=== PATIENT | female | born 1985 | race Caucasian/White ===

== ENCOUNTER 2020-01-27 14:31 | Outpatient (CLI) | payer OTHER, SELFPAY ==
--- NOTE | ~2020-01-27 | US_ITS ---
EXAMINATION: US right upper quadrant EXAM DATE: 01/27/2020 15:14 INDICATION: Increased liver function. Cholecystectomy. TECHNIQUE: Multiple grayscale and Doppler images of the abdomen right upper quadrant were obtained (b y a technologist who performed the scan) and subsequently reviewed. There is no prior study for trenton roca. FINDINGS: The pancreatic head and body are normal in appearance. The pancreatic tail is not visualized. The l iver has normal echogenicity and contour. There are no focal liver lesions identified. There is no evidence of intrahepatic biliary duct dilation. Portal venous flow was seen in the hepatopedal, nor mal direction and has normal Doppler waveform. No right-sided hydronephrosis. Common bile duct measures 6 mm, which is normal. The gallbladder fossa is unremarkable. IMPRESSION: 1. Unremarkable abdominal ultrasound exam. Reviewed, dictated and finalized at location G.
[2020-01-27 15:44] LABS: Prothrombin Time 12.6 Seconds (11.1-14.7)
[2020-01-27 15:45] LABS: Partial Thromboplastin Time 26.3 SECONDS (22.3-36.8)
[2020-01-27 15:46] LABS: Alanine Aminotransferase 12 U/L (4-35); Albumin Level 4.4 g/dL (3.5-5.1); Alkaline Phosphatase 74 U/L (38-126); Aspartate Amino Transferase 20 U/L (14-36)
[2020-01-27 16:42] LABS: Hepatitis B Surface Antigen Negative (Negative)
[2020-01-27 16:47] LABS: HAV RESULT Negative (Negative); Hepatitis B Core IgM Result Negative (Negative)
[2020-01-27 16:59] LABS: Hepatitis C Virus Antibody Negative (Negative)
[2020-01-30 12:01] LABS: Actin Antibody (IgG) <20 U (<20)
[2020-01-30 12:55] LABS: Mitochondrial (M2) Ab (IgG) <=20.0 U (<=20.0)
[2020-01-31 11:31] LABS: Anti Nuclear Antibody Titer 1:40 (Negative)
== END 2020-01-27 14:32 | disposition home or self-care (01) ==
DX: R94.5 Abnormal results of liver function studies (principal)
CPT/HCPCS: 36415; 76705; 80074; 80076; 83516; 83520; 85610; 85730; 86038; 86039

== ENCOUNTER 2022-01-31 13:43 | Outpatient (CLI) | payer OTHER, SELFPAY ==
[2022-01-31 14:32] LABS: Rheumatoid Factor < 8.6 IU/ML (<12)
[2022-01-31 14:42] LABS: CRP < 0.5 mg/dL (<1.0)
[2022-01-31 14:44] LABS: Erythrocyte Sedimentation Rate 11 mm/hr (0-20)
== END 2022-01-31 13:44 | disposition home or self-care (01) ==
LOC: ANHLAB 13:45
PROVIDERS: Visit Provider Podiatrist Foot & Ankle Surgery
DX: M79.671 Pain in right foot (principal)
CPT/HCPCS: 36415; 83036; 85652; 86038; 86039; 86140; 86430

== ENCOUNTER 2022-06-25 09:31 | Outpatient (CLI) | payer OTHER, SELFPAY ==
--- NOTE | 2022-06-25 11:00 | NEURO_ITS ---
Impression: # Complains of numbness of lower extremities. # Normal nerve conduction study. # Normal needle/EMG exam. # Clinical correlation recommended. Nerve Conduction Studies Anti Sensory Summary Table Stim Site NR Peak (ms) P-T Amp (?V) Site1 Site2 Delta-P (ms) Dist (cm) Hi (m/s) Left Sup Fibular Anti Sensory (Ant Lat Mall) 14 cm 2.9 12.4 14 cm Ant Lat Mall 2.9 16.0 55 Right Sup Fibular Anti Sensory (Ant Lat Mall) 14 cm 3.1 19.6 14 cm Ant Lat Mall 3.1 16.0 52 Left Sural Anti Sensory (Lat Mall) Calf 3.5 14.8 Calf Lat Mall 3.5 16.0 46 Right Sural Anti Sensory (Lat Mall) Calf 3.6 19.2 Calf Lat Mall 3.6 16.0 44 Motor Summary Table Stim Site NR Onset (ms) O-P Amp (mV) Site1 Site2 Delta-0 (ms) Dist (cm) Hi (m/s) Left Peroneal Motor (Vastus Med) Ankle 4.0 1.2 Popit Ankle 7.6 36.0 47 Popit 11.6 1.3 Right Peroneal Motor (Vastus Med) Ankle 4.2 2.6 Popit Ankle 7.7 33.0 43 Popit 11.9 2.2 Left Tibial Motor (Abd Elaine Brev) Ankle 4.5 7.1 Knee Ankle 9.7 40.0 41 Knee 14.2 2.5 Right Tibial Motor (Abd Elaine Brev) Ankle 4.1 5.0 Knee Ankle 9.3 37.0 40 Knee 13.4 2.7 F Wave Studies NR F-Lat (ms) L-R F-Lat (ms) Left Peroneal (Mrkrs) (EDB) 51.11 0.00 Right Peroneal (Mrkrs) (EDB) 51.11 0.00 Left Tibial (Mrkrs) (Abd Hallucis) 50.94 0.16 Right Tibial (Mrkrs) (Abd Hallucis) 50.78 0.16 EMG Side Muscle Nerve Root Ins Act Fibs Amp Dur Recrt Comment Right AntTibialis Dp Br Fibular L4-5 Nml Nml Nml Nml Nml Right Gastroc Tibial S1-2 Nml Nml Nml Nml Nml Right Fibularis Long Sup Br Fibular L5-S1 Nml Nml Nml Nml Nml Right Flex Dig Long Tibial L5-S2 Nml Nml Nml Nml Nml Right Ext Dig Brev Dp Br Fibular L5, S1 Nml Nml Nml Nml Nml Left AntTibialis Dp Br Fibular L4-5 Nml Nml Nml Nml Nml Left Gastroc Tibial S1-2 Nml Nml Nml Nml Nml Left Fibularis Long Sup Br Fibular L5-S1 Nml Nml Nml Nml Nml Left Flex Dig Long Tibial L5-S2 Nml Nml Nml Nml Nml Left Ext Dig Brev Dp Br Fibular L5, S1 Nml Nml Nml Nml Nml MTDD
== END 2022-06-25 09:32 | disposition home or self-care (01) ==
PROVIDERS: PCP Physician Assistant; Visit Provider Psychiatry & Neurology Neurology
DX: R20.0 Anesthesia of skin (principal)
CPT/HCPCS: 95886; 95910

== ENCOUNTER 2022-07-11 14:13 | Emergency (ER) | payer OTHER, SELFPAY ==
--- NOTE | 2022-07-11 14:20 | ED.URI ---
HPI - URI/Sore Throat General Chief Complaint: Ear Stated Complaint: Right Ear Irritation, Face Swelling Time Seen by Provider: 07/11/22 14:20 Source: patient, RN notes reviewed and old records reviewed Mode of arrival: ambulatory Limitations: no limitations History of Present Illness HPI Narrative: 37-year-old female presents to the [facility] with complaints of right ear irritation and face swelling. Sinus issues x 1 week. Right ear pain with HX Related Data Home Medications Medication Instructions Recorded Confirmed epinephrine 0.3 mg/0.3 mL 0.3 mg IM ONCE PRN 04/17/22 injection, auto-injector amoxicillin 875 mg-potassium tablet 07/11/22 clavulanate 125 mg tablet duloxetine 60 mg capsule,delayed mg PO 07/11/22 release famotidine 20 mg tablet mg 07/11/22 Allergies Allergy/AdvReac Type Severity Reaction Status Date / Time bee venom protein (honey bee) Allergy Severe Anaphylaxis Verified 07/11/22 14:31 diclofenac [From Pennsaid] Allergy Severe Itching Verified 07/11/22 14:31 fentanyl Allergy Severe Other Verified 07/11/22 14:31 aripiprazole Allergy Unknown HIVES Verified 07/11/22 14:31 doxycycline Allergy Unknown Other Verified 07/11/22 14:31 sumatriptan Allergy Unknown HIVES Verified 07/11/22 14:31 codeine AdvReac Unknown STOMACH Verified 07/11/22 14:31 ISSUE'S Contrast Media Allergy Unknown HIVES Uncoded 07/11/22 14:31 TRAMADOL HCL Allergy Unknown HIVES Uncoded 07/11/22 14:31 Review of Systems Review of Systems: All systems reviewed & are unremarkable except as noted in HPI and below Constitutional: Constitutional: Reports no additional constitutional complaints, Denies chills and Denies fever(s) Eyes: Eyes: Reports no additional eye complaints ENT: Reports as per HPI and Reports otalgia Cardiovascular: Cardiovascular: Reports no additional cardiovascular complaints Respiratory: Respiratory: Reports no additional respiratory complaints Gastrointestinal: Gastrointestinal: Reports no additional gastrointestinal complaints Musculoskeletal: Musculoskeletal: Reports no additional musculoskeletal complaints Integumentary/Breasts: Skin/Breast: Reports system reviewed and no additional complaints, except as docu Neurologic: Reports system reviewed and no additional complaints, except as documented Psychiatric: Psychiatric: Reports no additional psychiatric complaints Allergic/Immunologic: Allergic/Immunologic: Reports no additional allergic/immunologic complaints PMFSH Past Medical History Medical History Acute sinusitis Asthma Bladder irritability Crohn disease Dilation of esophagus Encounter for prophylactic removal of fallopian tube Gastritis GERD (gastroesophageal reflux disease) Hyperlipidemia Insomnia Irritable bowel disease Neuropathy Nondiabetic gastroparesis Pain in both feet Pain in both hands Pancreatitis Peptic ulcer Plantar fasciitis of left foot Pneumonia Polyneuropathy Post traumatic stress disorder Sinusitis Stricture of esophagus Vitamin D deficiency Surgical History Surgical History H/O LEEP H/O tubal ligation History of biopsy Stomach History of cholecystectomy History of hysterectomy Family History Family History Mother Depression Sibling Depression Alcohol abuse Blood coagulation disorder Disorder of thyroid gland Hypertension Mother Hypertension Hypercholesteremia Heart disease Disorder of thyroid gland Blood coagulation disorder Asthma Alcohol abuse Son Autoimmune disease Vitiligo Alopecia Sibling Alcohol abuse ADHD (attention deficit hyperactivity disorder) Depression Social History Social History Smoking status: Never smoker Comments At the time of my signature, I reviewed and agree with
[2022-07-11 14:25] VITALS: BP 105/68; PULSE 81; RESP 16; TEMP 36.2; O2SAT 100
--- NOTE | 2022-07-11 14:38 | PC.NURSE ---
another rn was in with pt and no further assessment done by this rn after.
== END 2022-07-11 15:20 | disposition home or self-care (01) ==
PROVIDERS: Emergency Provider Nurse Practitioner; PCP Physician Assistant
DX: H69.91 Unspecified Eustachian tube disorder, right ear (principal); J32.9 Chronic sinusitis, unspecified; J45.909 Unspecified asthma, uncomplicated; K50.90 Crohn's disease, unspecified, without complications; K21.9 Gastro-esophageal reflux disease without esophagitis; E78.5 Hyperlipidemia, unspecified
CPT/HCPCS: 99213; G0463

== ENCOUNTER 2022-10-05 08:27 | Emergency (ER) | payer OTHER, SELFPAY ==
--- NOTE | ~2022-10-05 | CT_ITS ---
EXAMINATION: CT abdomen pelvis wo con DATE: 10/05/2022 14:22 INDICATION: Right abdominal pain. TECHNIQUE: Computed tomography (CT) of the abdomen and pelvis was performed without intravenous contr ast. Automated exposure control and iterative reconstruction technique were employed. The dose-length product was 555.21 mGy-cm. COMPARISON: CT abdomen and pelvis 03/09/2015 FINDINGS: The visualized portions of the lung bases demonstrate mild atelectasis. No pleural effusion . The heart size is normal. No pericardial effusion. The liver is normal. There are changes of cholec ystectomy. Calcifications in the spleen are consistent with old granulomatous disease. The pancreas, adrenal glands, and kidneys are normal. There is no urolithiasis. There are no dilated loops of bowel . The appendix is normal. There are no pathologically enlarged lymph nodes. There is no free intraper itoneal fluid. There is mild thoracic spondylosis. IMPRESSION: 1. No etiology for the patient's symptoms. Reviewed, dictated and finalized at location A. WELL ENGINEER
[2022-10-05 08:55] VITALS: BP 126/75; PULSE 62; RESP 16; TEMP 36.6; O2SAT 100
[2022-10-05 09:18] LABS: Add Urine Microscopic? YES; Appearance Urine Clear (Clear); Bilirubin Urine Negative (Negative); Blood Urine Trace-Intact (Negative); Color Urine Straw (Yellow); Glucose Urine UA Negative (Negative); Ketones Urine Negative (Negative); Leukocyte Esterase Ur Negative LEU/UL (Negative); Nitrate Urine Negative (Negative); Protein Urine Negative (Negative); Urobilinogen Urine 0.2 mg/dL (<2.0); pH Urine 7.5 (5.0-9.0)
[2022-10-05 09:28] LABS: Bacteria Urine Trace /hpf; Mucus Urine Rare /lpf; Squamous Epithelial Cell Urine Moderate /hpf (Few); WBC Urine 0-3 /hpf
[2022-10-05] MEDS: SODIUM CHLORIDE 0.9% IV 1,000 ML 999 ML IV CONT (12:29)
[2022-10-05 12:43] LABS: Basophils Percent Auto 0.4 % (0.2-1.2); Eosinophils Absolute Auto 0.1 K/mm3 (0-0.3); Eosinophils Percent Auto 1.8 % (0-4.4); Hematocrit 40.2 % (37.0-47.0); Hemoglobin 13.2 g/dL (12.0-15.0); Immature Granulocyte Absolute 0.02 K/mm3 (0.00-0.031); Immature Granulocyte Percent A 0.3 % (0-0.5); Lymphocytes Absolute Auto 2.76 K/mm3 (0.9-3.2); Mean Corpuscular HGB Conc 32.8 g/dl (32-36); Mean Corpuscular Hemoglobin 29.1 pg (26-34); Mean Corpuscular Volume 88.5 fl (80-100); Mean Platelet Volume 10.3 fl (7.4-10.4); Monocytes Absolute Auto 0.4 K/mm3 (0.1-0.6); Monocytes Percent Auto 5.1 % (2.6-8.5); Neutrophils Absolute Auto 4.3 K/mm3 (1.3-6.7); Neutrophils Percent Auto 56.4 % (45.5-73.1); Platelet Count Result 252 k/mm3 (150-375); Red Blood Count 4.54 M/mm3 (4.2-5.4); Red Cell Distribution Width 12.3 % (11.5-14.5); White Blood Count 7.7 K/mm3 (4.5-10.0)
--- NOTE | 2022-10-05 13:30 | ED.GENADULT ---
HPI - General Adult General Chief complaint: Vaginal Bleeding Stated complaint: Vaginal Bleed Time Seen by Provider: 10/05/22 11:28 History of Present Illness HPI narrative: 37-year-old female presents emergency room for right lower quadrant abdominal pain with vaginal spotting for 3 days. Patient states that she noted a spot of blood 3 days ago, had intercourse the following day and has noticed an increase in her spotting. Patient has had a partial hysterectomy due to multiple abnormal Pap smears. She has also had a uterine ablation and LEEP procedure. Related Data Home Medications Medication Instructions Recorded Confirmed amoxicillin 875 mg-potassium tablet 07/11/22 clavulanate 125 mg tablet Allergies Allergy/AdvReac Type Severity Reaction Status Date / Time bee venom protein (honey bee) Allergy Severe Anaphylaxis Verified 09/02/22 14:29 diclofenac [From Pennsaid] Allergy Severe Itching Verified 09/02/22 14:29 fentanyl Allergy Severe Other Verified 09/02/22 14:29 aripiprazole Allergy Unknown HIVES Verified 09/02/22 14:29 doxycycline Allergy Unknown Other Verified 09/02/22 14:29 sumatriptan Allergy Unknown HIVES Verified 09/02/22 14:29 codeine AdvReac Unknown STOMACH Verified 07/11/22 14:31 ISSUE'S Contrast Media Allergy Unknown HIVES Uncoded 09/02/22 14:29 TRAMADOL HCL Allergy Unknown HIVES Uncoded 09/02/22 14:29 PMFSH Past Medical History Medical History Acute sinusitis Asthma Bladder irritability Crohn disease Dilation of esophagus Encounter for prophylactic removal of fallopian tube Gastritis GERD (gastroesophageal reflux disease) Hyperlipidemia Insomnia Irritable bowel disease Neuropathy Nondiabetic gastroparesis Pain in both feet Pain in both hands Pancreatitis Peptic ulcer Plantar fasciitis of left foot Pneumonia Polyneuropathy Post traumatic stress disorder Sinusitis Stricture of esophagus Vitamin D deficiency Surgical History Surgical History H/O LEEP H/O tubal ligation History of biopsy Stomach History of cholecystectomy History of hysterectomy Family History Family History Mother Depression Sibling Depression Alcohol abuse Blood coagulation disorder Disorder of thyroid gland Hypertension Mother Hypertension Hypercholesteremia Heart disease Disorder of thyroid gland Blood coagulation disorder Asthma Alcohol abuse Son Autoimmune disease Vitiligo Alopecia Sibling Alcohol abuse ADHD (attention deficit hyperactivity disorder) Depression Social History Social History Smoking status: Never smoker Alcohol intake: never Substance use: never Lack of Transportation: No Lack of Food: Sometimes True Current Housing: I Have Housing Concerned About Future Housing: No Difficulty Paying Gas/Electric Bills: No Difficulty Paying for Meds: No Currently Unemployed: No Education: High School Diploma/GED Difficulty w/ Childcare or Family Care: No Exam Narrative: GENERAL: Well-appearing, well-nourished, no physical limitations, and in no acute distress. HEAD: Normocephalic, atraumatic. EYES: Conjunctivae normal, PERRLA and EOMI. CHEST: Clear to auscultation. No respiratory distress. No wheezes rales or rhonchi. HEART: Regular rate and rhythm. No murmur heard. Normal peripheral pulses. ABDOMEN: Soft, right lower quadrant tenderness, nondistended, normal active bowel sounds. : Normal external female exam. Vaginal vault demonstrates pink rugae with no evidence of trauma. No blood noted BACK: No CVA tenderness; No cervical/thoracic/lumbar tenderness, step-offs, bony abnormality; FROM EXTREMITIES: Normal range of motion. No edema. No clubbing or cyanosis SKIN: Warm, dry, no rash. No noted wounds NEURO: No focal defi
[2022-10-05 13:40] LABS: Anion Gap 6 mmol/L (8-16); Blood Urea Nitrogen 9 mg/dL (7-17); Calcium 8.8 mg/dL (8.4-10.2); Carbon Dioxide 28 mmol/L (22-30); Chloride 104 mmol/L (98-107); Estimated CRCL calculation 104 ml/min; Estimated Glomerular Filt Rate > 60; Glucose 89 mg/dL (65-110); Potassium 3.9 mmol/L (3.4-5.0); Sodium 138 mmol/L (137-145)
== END 2022-10-05 15:29 | disposition home or self-care (01) ==
PROVIDERS: Emergency Medicine; Emergency Provider Nurse Practitioner Family; PCP Physician Assistant
DX: N93.9 Abnormal uterine and vaginal bleeding, unspecified (principal); J45.909 Unspecified asthma, uncomplicated; E78.5 Hyperlipidemia, unspecified; K50.90 Crohn's disease, unspecified, without complications; K21.9 Gastro-esophageal reflux disease without esophagitis; K31.84 Gastroparesis; G62.9 Polyneuropathy, unspecified; Z87.01 Personal history of pneumonia (recurrent); Z90.711 Acquired absence of uterus with remaining cervical stump
CPT/HCPCS: 36415; 74176; 80048; 81001; 85025; 96360; 96361; 99284; J7030

== ENCOUNTER 2023-01-04 13:13 | Outpatient (CLI) | payer OTHER, SELFPAY ==
--- NOTE | ~2023-01-04 | MR_ITS ---
EXAMINATION: MR lumbar spine wo con DATE: 01/04/2023 13:55 INDICATION: RLE pain, concern for radiculopathy . TECHNIQUE: Magnetic resonance imaging (MRI) of the lumbar spine was performed without intravenous con trast. Sequences included sagittal T2-weighted FSE, sagittal T2-weighted FS FSE, sagittal T1-weighted FSE, and axial T2-weighted FSE. COMPARISON: None FINDINGS: The last fully formed and hydrated disc is designated L5-S1. The marrow signal is benign an d homogenous. Conus terminates at L1. The discs are well hydrated. The following disc levels are spec ifically discussed: T11-T12: The disc does not extend beyond the endplate margin. There is no facet joint osteoarthritis. There is no neural foraminal stenosis. There is no central canal stenosis. T12-L1: The disc does not extend beyond the endplate margin. There is no facet joint osteoarthritis. There is no neural foraminal stenosis. There is no central canal stenosis. L1-L2: The disc does not extend beyond the endplate margin. There is mild facet joint osteoarthritis. There is no neural foraminal stenosis. There is no central canal stenosis. L2-L3: The disc does not extend beyond the endplate margin. There is mild facet joint osteoarthritis. There is no neural foraminal stenosis. There is no central canal stenosis. L3-L4: Mild diffuse bulge. There is mild facet joint osteoarthritis. There is no neural foraminal tori nosis. There is no central canal stenosis. L4-L5: Mild diffuse bulge. 2 mm bilateral foraminal protrusions. There is no facet joint osteoarthrit is. There is no neural foraminal stenosis. There is no central canal stenosis. L5-S1: Mild diffuse bulge. Tiny, focal disc rent centrally. There is mild facet joint osteoarthritis. There is no neural foraminal stenosis. There is no central canal stenosis. IMPRESSION: 1. 2 mm bilateral foraminal protrusions at L4-5, without significant neural foraminal narrowing. 2. Mild multilevel lumbar degenerative disc disease. 3. Mild multilevel facet arthropathy. Reviewed, dictated and finalized at location K. IMPRESSION: 1. 2 mm bilateral foraminal protrusions at L4-5, without significant neural for aminal narrowing. 2. Mild multilevel lumbar degenerative disc disease. 3. Mild multilevel facet arthropathy.
== END 2023-01-04 13:14 | disposition home or self-care (01) ==
LOC: ANHIMG 13:23
PROVIDERS: PCP Internal Medicine Gastroenterology; Visit Provider Student in an Organized Health Care Education/Training Program
DX: M79.2 Neuralgia and neuritis, unspecified (principal); M51.36 Other intervertebral disc degeneration, lumbar region; M47.817 Spondylosis without myelopathy or radiculopathy, lumbosacral region; M51.26 Other intervertebral disc displacement, lumbar region
CPT/HCPCS: 72148

== ENCOUNTER 2023-07-03 09:36 | Outpatient (CLI) | payer OTHER, SELFPAY ==
--- NOTE | ~2023-07-03 | XR_ITS ---
EXAMINATION: XR chest 2V DATE: 07/03/2023 09:56 INDICATION: Abnormal imaging of spleen. TECHNIQUE: Frontal and lateral views of the chest were obtained. COMPARISON: Chest 2 views 10/19/2010, CT abdomen and pelvis 10/05/2022 FINDINGS: There is no pneumonia, pleural effusion, or pneumothorax. Surgical clips in the right upper quadrant are likely from cholecystectomy. Calcifications in the spleen are consistent with old granu lomatous disease. IMPRESSION: 1. No acute cardiopulmonary disease. Reviewed, dictated and finalized at location E.
[2023-07-07 12:22] LABS: NIL 0.06; Quantiferon TB Plus, 1T Positive; TB1-NIL 0.38; TB2-NIL 0.38
== END 2023-07-03 09:37 | disposition home or self-care (01) ==
PROVIDERS: PCP Internal Medicine Gastroenterology
DX: R93.5 Abnormal findings on diagnostic imaging of other abdominal regions, including retroperitoneum (principal)
CPT/HCPCS: 36415; 71046; 86480

== ENCOUNTER 2023-10-27 14:53 | Outpatient (CLI) | payer OTHER, SELFPAY ==
--- NOTE | ~2023-10-27 | CT_ITS ---
EXAMINATION:CT diagnostic chest wo con DATE: 10/27/2023 15:19 INDICATION: Abnormal abdominal imaging. TECHNIQUE: Computed tomography (CT) of the chest was performed without intravenous contrast. Automate d exposure control and iterative reconstruction technique were employed. The dose-length product (DLP ) was 124.97 mGy-cm. COMPARISON: CT abdomen and pelvis 10/05/2022 FINDINGS: The lungs demonstrate minimal atelectasis. No pleural effusion. The heart size is normal. N o pericardial effusion. Calcifications in the spleen are consistent with old granulomatous disease. T here are changes of cholecystectomy. There is mild thoracic spondylosis. IMPRESSION: 1. No significant abnormality. Reviewed, dictated and finalized at location E. S COMMISSIONS ANALYST
== END 2023-10-27 14:54 | disposition home or self-care (01) ==
PROVIDERS: PCP Internal Medicine Gastroenterology
DX: R76.11 Nonspecific reaction to tuberculin skin test without active tuberculosis (principal)
CPT/HCPCS: 71250

== ENCOUNTER 2023-11-16 13:21 | Emergency (ER) | payer OTHER, SELFPAY ==
[2023-11-16 13:57] VITALS: BP 120/70; PULSE 78; RESP 16; TEMP 36.9; O2SAT 100
--- NOTE | 2023-11-16 14:01 | ED.SKABFB ---
HPI - Skin/Abscess/Foreign Bdy General Chief complaint: Skin/Abscess/Foreign Body Stated complaint: Rash Time Seen by Provider: 11/16/23 14:31 Source: patient and RN notes reviewed Mode of arrival: ambulatory Limitations: no limitations History of Present Illness HPI narrative: 38-year-old female presents concern for rash to her left arm. She reports the rash has been there about 2 weeks, it showed up 2 days after she got a tattoo. Reports it is itchy and not painful. She reports she got another tattoo on the lower arm later and the rash spread there. She reports she has put [id number] cream on without relief. She denies rashes in any other area of her body MD complaint: rash Related Data Allergies Allergy/AdvReac Type Severity Reaction Status Date / Time bee venom protein (honey bee) Allergy Severe Anaphylaxis Verified 11/16/23 14:05 diclofenac [From Pennsaid] Allergy Severe Itching Verified 11/16/23 14:05 fentanyl Allergy Severe Other Verified 11/16/23 14:05 aripiprazole Allergy Unknown HIVES Verified 11/16/23 14:05 doxycycline Allergy Unknown Other Verified 11/16/23 14:05 sumatriptan Allergy Unknown HIVES Verified 11/16/23 14:05 codeine AdvReac Unknown STOMACH Verified 11/16/23 14:05 ISSUE'S Contrast Media Allergy Unknown HIVES Uncoded 09/02/22 14:29 TRAMADOL HCL Allergy Unknown HIVES Uncoded 09/02/22 14:29 Review of Systems Review of Systems: CONSTITUTIONAL: Denies malaise, chills, sweats, or fever. EYES: Denies redness, or discharge. ENT: Denies rhinorrhea, congestion, swollen lips, swollen tongue CARDIOVASCULAR: Denies chest pain, palpitations, or edema. RESPIRATORY: Denies cough or dyspnea. GASTROINTESTINAL: Denies abdominal pain, nausea, vomiting SKIN: Reports itchy rash to the left arm MUSCULOSKELETAL: Denies joint pain or myalgia. NEUROLOGIC: Denies headache. All systems reviewed & are unremarkable except as noted in HPI and below PMFSH Past Medical History Medical History Acute sinusitis Asthma Bladder irritability Crohn disease Dilation of esophagus Encounter for prophylactic removal of fallopian tube Gastritis GERD (gastroesophageal reflux disease) Hyperlipidemia Insomnia Irritable bowel disease Neuropathy Nondiabetic gastroparesis Pain in both feet Pain in both hands Pancreatitis Peptic ulcer Plantar fasciitis of left foot Pneumonia Polyneuropathy Post traumatic stress disorder Sinusitis Stricture of esophagus Vitamin D deficiency Surgical History Surgical History H/O LEEP H/O tubal ligation History of biopsy Stomach History of cholecystectomy History of hysterectomy Family History Family History Mother Depression Sibling Depression Alcohol abuse Blood coagulation disorder Disorder of thyroid gland Hypertension Mother Hypertension Hypercholesteremia Heart disease Disorder of thyroid gland Blood coagulation disorder Asthma Alcohol abuse Son Autoimmune disease Vitiligo Alopecia Sibling Alcohol abuse ADHD (attention deficit hyperactivity disorder) Depression Social History Social History (Updated 12/24/22 @ 13:36 by Valencia Ye MA) Smoking status: Never smoker Alcohol intake: never Substance use: never Lack of Transportation: No Lack of Food: Never True Current Housing: I Have Housing Concerned About Future Housing: No Difficulty Paying Gas/Electric Bills: No Difficulty Paying for Meds: No Currently Unemployed: No Education: High School Diploma/GED Difficulty w/ Childcare or Family Care: No Comments At time of signature, agree with nursing past medical, surgical, social and family history. There is no relevant family history pertinent to the presenting complaint Exam Narrative: GENERAL: Well-appearing, well-nourished, and in no acute di
== END 2023-11-16 14:44 | disposition home or self-care (01) ==
PROVIDERS: Emergency Provider Nurse Practitioner; PCP Internal Medicine Gastroenterology
DX: L25.9 Unspecified contact dermatitis, unspecified cause (principal); J45.909 Unspecified asthma, uncomplicated; K50.90 Crohn's disease, unspecified, without complications; K21.9 Gastro-esophageal reflux disease without esophagitis; E78.5 Hyperlipidemia, unspecified; G62.9 Polyneuropathy, unspecified
CPT/HCPCS: 99213; G0463

== ENCOUNTER 2024-04-08 15:28 | Outpatient (CLI) | payer OTHER, SELFPAY ==
[2024-04-08 16:08] LABS: Basophils Percent Auto 0.4 % (0.2-1.2); Eosinophils Absolute Auto 0.3 K/mm3 (0-0.3); Eosinophils Percent Auto 4.8 % (0-4.4); Hemoglobin 14.3 g/dL (12.0-15.0); Immature Granulocyte Absolute 0.01 K/mm3 (0.00-0.031); Immature Granulocyte Percent A 0.1 % (0-0.5); Lymphocytes Absolute Auto 2.92 K/mm3 (0.9-3.2); Lymphocytes Percent Auto 42.1 % (18.3-44.2); Mean Corpuscular Hemoglobin 29.8 pg (26-34); Mean Corpuscular Volume 87.5 fl (80-100); Mean Platelet Volume 10.5 fl (7.4-10.4); Monocytes Absolute Auto 0.3 K/mm3 (0.1-0.6); Monocytes Percent Auto 4.9 % (2.6-8.5); Neutrophils Absolute Auto 3.3 K/mm3 (1.3-6.7); Neutrophils Percent Auto 47.7 % (45.5-73.1); Platelet Count Result 246 k/mm3 (150-375); Red Cell Distribution Width 12.1 % (11.5-14.5); White Blood Count 6.9 K/mm3 (4.5-10.0)
[2024-04-08 16:21] LABS: Alanine Aminotransferase 13 U/L (6-35); Albumin Level 4.8 g/dL (3.5-5.1); Alkaline Phosphatase 66 U/L (38-126); Anion Gap 7 mmol/L (4-12); Aspartate Amino Transferase 20 U/L (14-36); Bilirubin,Total 0.9 mg/dL (0.2-1.3); Blood Urea Nitrogen 13 mg/dL (7-17); Calcium 9.4 mg/dL (8.4-10.2); Carbon Dioxide 28 mmol/L (22-30); Chloride 104 mmol/L (98-107); Estimated Glomerular Filt Rate > 60; Glucose 90 mg/dL (65-110); Potassium 3.9 mmol/L (3.4-5.0); Sodium 139 mmol/L (137-145)
[2024-04-08 16:49] LABS: Hemoglobin A1C 5.2 % (<5.7)
[2024-04-11 10:48] LABS: Homocysteine 8.2 umol/L (<10.4)
[2024-04-11 12:33] LABS: SS-A <1.0 NEG AI (<1.0 NEG); SS-B <1.0 NEG AI (<1.0 NEG)
[2024-04-12 17:14] LABS: Immunofixation, Serum Normal pattern.
[2024-04-13 20:39] LABS: Vitamin B6 8.2 ng/mL (2.1-21.7)
[2024-04-14 10:59] LABS: Vitamin B1 11 nmol/L (8-30)
[2024-04-19 18:18] LABS: Arsenic,Urine Results Below (<36); Cadmium,Random Urine Results Below (<1.3); Cobalt,Random Urine <0.5 mcg/L (<2.9); Creatinine,Random Urine 82 mg/dL (20-275); Lead,Urine Results Below (<10); Mercury, Random Urine Results Below (<5); Thallium, Urine Results Below (<0.5)
== END 2024-04-08 15:29 | disposition home or self-care (01) ==
LOC: ANHLAB 15:29
PROVIDERS: PCP Internal Medicine Gastroenterology; Visit Provider Student in an Organized Health Care Education/Training Program
DX: G62.9 Polyneuropathy, unspecified (principal)
CPT/HCPCS: 36415; 80053; 82607; 82746; 83036; 83090; 84207; 84425; 84443; 85025; 86038; 86039; 86235; 86334; 86335

== ENCOUNTER 2024-08-31 13:02 | Emergency (ER) | payer OTHER, SELFPAY ==
--- NOTE | 2024-08-31 13:09 | ED.SKABFB ---
HPI - Skin/Abscess/Foreign Bdy General Chief complaint: Skin/Abscess/Foreign Body Stated complaint: Skin Issues Time Seen by Provider: 08/31/24 13:15 Source: patient Mode of arrival: ambulatory Limitations: no limitations History of Present Illness HPI narrative: Keri is a 39-year-old female patient presenting to the clinic today with complaints of possible skin infection. She reports she had attached to on her right lateral thigh completed on Thursday. Noticed some redness and swelling with warmth to touch and tenderness. She saw her composer teaching artist today and they stated that she should come in and have an evaluation to check for an infection. She denies any fever or chills currently. Related Data Allergies Allergy/AdvReac Type Severity Reaction Status Date / Time bee venom protein (honey bee) Allergy Severe Anaphylaxis Verified 08/31/24 13:06 diclofenac [From Pennsaid] Allergy Severe Itching Verified 08/31/24 13:06 fentanyl Allergy Severe Other Verified 08/31/24 13:06 aripiprazole Allergy Unknown HIVES Verified 08/31/24 13:06 doxycycline Allergy Unknown Other Verified 08/31/24 13:06 sumatriptan Allergy Unknown HIVES Verified 08/31/24 13:06 codeine AdvReac Unknown STOMACH Verified 08/31/24 13:06 ISSUE'S Contrast Media Allergy Unknown HIVES Uncoded 08/31/24 13:06 TRAMADOL HCL Allergy Unknown HIVES Uncoded 08/31/24 13:06 Review of Systems Review of Systems: Pertinent positives per HPI. Patient denies any fever, chills, headache, visual changes, dizziness, cough, runny nose, sore throat, shortness of breath, chest pain, palpitations, nausea, vomiting, diarrhea, constipation, abdominal pain, or any urinary issues. [facility] Past Medical History Medical History Acute sinusitis Asthma Bladder irritability Crohn disease Dilation of esophagus Encounter for prophylactic removal of fallopian tube Gastritis GERD (gastroesophageal reflux disease) Hyperlipidemia Insomnia Irritable bowel disease Neuropathy Nondiabetic gastroparesis Pain in both feet Pain in both hands Pancreatitis Peptic ulcer Plantar fasciitis of left foot Pneumonia Polyneuropathy Post traumatic stress disorder Sinusitis Stricture of esophagus Vitamin D deficiency Surgical History Surgical History H/O LEEP H/O tubal ligation History of biopsy Stomach History of cholecystectomy History of hysterectomy Family History Family History Mother Depression Sibling Depression Alcohol abuse Blood coagulation disorder Disorder of thyroid gland Hypertension Mother Hypertension Hypercholesteremia Heart disease Disorder of thyroid gland Blood coagulation disorder Asthma Alcohol abuse Son Autoimmune disease Vitiligo Alopecia Sibling Alcohol abuse ADHD (attention deficit hyperactivity disorder) Depression Social History Social History Smoking status: Never smoker Alcohol intake: never Substance use: never Lack of Transportation: No Lack of Food: Never True Current Housing: I Have Housing Concerned About Future Housing: No Difficulty Paying Gas/Electric Bills: No Difficulty Paying for Meds: No Currently Unemployed: No Education: High School Diploma/GED Difficulty w/ Childcare or Family Care: No Comments At the time of my signature, I reviewed and agree with the nursing past medical, surgical, social, and family history. There is no relevant family history pertinent to the patient complaint. Exam Narrative: General: Well-developed, well nourished, in no apparent distress Head: Normocephalic, atraumatic. Cardio: Regular rate and rhythm, s1 and s2 normal, no murmur appreciated. Resp: Clear to auscultation bilaterally, no rhonchi, rales, wheezing or rubs. Integumentary: Laie, warm, and dry, infected tattoo to the right thigh with redness, erythema, and localized swelling/cellulitis. Course Course Emergency Course: Portions of this record may have been created with voice recognition software. Level of Care: Express Care Visit Vital Signs Vital signs: Vital signs reviewed MDM - Skin/Abscess/Foreign Bdy MDM Narrative Medical decision making narrative: At the time of visit patient is resting comfortably on the exam table. Patient appears to be nontoxic. Plan: I suspect patient has cellulitis from a tattoo infection. Prescription for clindamycin was sent to the pharmacy. Discussed taking a probiotic or eating yogurt 2 hours before 2 hours after taking the antibiotic to prevent C diff. Supportive measures were discussed with the patient and they voiced understanding discharge instructions and agrees to treatment plan. Return precautions reviewed Differential Diagnosis Differential diagnosis: Likely abscess of skin or subcutaneous tissue, viral exanthem, dermatophytosis, herpes zoster, allergic reaction to drug, cellulitis, eczema, insect bites, impetigo and contact dermatitis Discharge Plan Discharge Clinical Impression: Cellulitis of right thigh Patient Disposition: Home, Self-Care Condition: Stable Instructions: Antibiotic Form, Cellulitis (ED) Additional Instructions: Keep wound clean and dry Wash daily with soap and water and pat dry Take clindamycin as prescribed May take a probiotic daily 2 hours before or 2 hours after taking the medication or eat yogurt-do this for up to 1 month May take Tylenol/Motrin as needed for pain May apply cool compress to the affected area to help alleviate pain and swelling Follow-up with your primary care doctor on Thursday for wound check If symptoms worsen while on the antibiotic recommend going to the emergency room for further evaluation-increase in redness, swelling, pain, purulent discharge, streaking, or fever not controlled by Tylenol or Motrin. Prescriptions: New clindamycin HCl 300 mg capsule 300 mg PO Q8H 10 Days Qty: 30 0RF Follow-up/Referrals: Mitzy,Ann Roy MD [Primary Care Provider] - Time of Disposition: 13:17 Quality NIHSS Nursing Documentation ED NIHSS nursing documentation: reviewed/agree
[2024-08-31 13:10] VITALS: BP 110/79; PULSE 68; RESP 18; TEMP 36.8; O2SAT 99
== END 2024-08-31 13:25 | disposition home or self-care (01) ==
PROVIDERS: Emergency Provider Nurse Practitioner Family; PCP Internal Medicine Gastroenterology
DX: L03.115 Cellulitis of right lower limb (principal); J45.909 Unspecified asthma, uncomplicated; K50.90 Crohn's disease, unspecified, without complications; K21.9 Gastro-esophageal reflux disease without esophagitis; E78.5 Hyperlipidemia, unspecified
CPT/HCPCS: 99213; G0463

== ENCOUNTER 2024-11-12 08:46 | Emergency (ER) | payer OTHER, SELFPAY ==
[2024-11-12 08:57] VITALS: BP 103/75; PULSE 67; RESP 16; TEMP 35.8; O2SAT 98
--- NOTE | 2024-11-12 08:59 | ED.URI ---
HPI - URI/Sore Throat General Chief Complaint: Upper Respiratory Infection Stated Complaint: cough, lungs & back hurt Time Seen by Provider: 11/12/24 08:59 Source: patient, RN notes reviewed and old records reviewed Mode of arrival: ambulatory Limitations: no limitations History of Present Illness HPI Narrative: Patient presents with complaints of minimally productive parking burning cough that has been present for 5 days. She denies any fever, chills, sweats. She denies any shortness of breath. Reports occasional wheezing. She has tried [id number] medications with poor relief. She is not in any distress. She denies any injury or trauma. Voices no other concerns or complaints at this time. Related Data Home Medications ?Medication ?Instructions ?Recorded ?Confirmed ?Last Taken ?Type cyanocobalamin (vitamin B-12) 100 mcg IM MONTHLY 11/12/24 11/12/24 Unknown History 1,000 mcg/mL injection solution dicyclomine 20 mg tablet 20 mg PO TID PRN abdominal pain 11/12/24 11/12/24 Unknown History Allergies Allergy/AdvReac Type Severity Reaction Status Date / Time bee venom protein (honey bee) Allergy Severe Anaphylaxis Verified 11/12/24 08:54 diclofenac (From Pennsaid) Allergy Severe Itching Verified 11/12/24 08:54 fentanyl Allergy Severe Other Verified 11/12/24 08:54 aripiprazole Allergy Unknown HIVES Verified 11/12/24 08:54 doxycycline Allergy Unknown Other Verified 11/12/24 08:54 sumatriptan Allergy Unknown HIVES Verified 11/12/24 08:54 codeine AdvReac Unknown STOMACH Verified 11/12/24 08:54 ISSUE'S Contrast Media Allergy Unknown HIVES Uncoded 11/12/24 08:54 TRAMADOL HCL Allergy Unknown HIVES Uncoded 11/12/24 08:54 Review of Systems Review of Systems: All systems reviewed & are unremarkable except as noted in HPI and below Constitutional: Constitutional: Reports no additional constitutional complaints ENT: Reports system reviewed and no additional complaints, except as documented Cardiovascular: Cardiovascular: Reports no additional cardiovascular complaints Respiratory: Respiratory: Reports no additional respiratory complaints, Reports chest congestion, Reports cough and Reports wheezing Gastrointestinal: Gastrointestinal: Reports no additional gastrointestinal complaints PMFSH Past Medical History Medical History Acute sinusitis Asthma Bladder irritability Crohn disease Dilation of esophagus Encounter for prophylactic removal of fallopian tube Gastritis GERD (gastroesophageal reflux disease) Hyperlipidemia Insomnia Irritable bowel disease Neuropathy Nondiabetic gastroparesis Pain in both feet Pain in both hands Pancreatitis Peptic ulcer Plantar fasciitis of left foot Pneumonia Polyneuropathy Post traumatic stress disorder Sinusitis Stricture of esophagus Vitamin D deficiency Surgical History Surgical History History of biopsy Stomach H/O tubal ligation H/O LEEP History of hysterectomy History of cholecystectomy Family History Family History Mother Depression Sibling Depression Alcohol abuse Blood coagulation disorder Disorder of thyroid gland Hypertension Mother Hypertension Hypercholesteremia Heart disease Disorder of thyroid gland Blood coagulation disorder Asthma Alcohol abuse Son Autoimmune disease Vitiligo Alopecia Sibling Alcohol abuse ADHD (attention deficit hyperactivity disorder) Depression Social History Social History Smoking status: Never smoker Alcohol intake: never Substance use: never Lack of Transportation: No Lack of Food: Never True Current Housing: I Have Housing Concerned About Future Housing: No Difficulty Paying Gas/Electric Bills: No Difficulty Paying for Meds: No Currently Unemployed: No Education: High School Diploma/GED Difficulty w/ Childcare or Family Care: No Comments At the time of my signature, I reviewed and agree with the nursing past medical, surgical, social, and family history. There is no relevant family history pertinent to the patient complaint. Exam Const: General: cooperative, no acute distress, alert and awake Orientation/consciousness: oriented to person, oriented to place and oriented to time HENMT: Head: normal to inspection Mouth: Yes moist mucous membranes Resp: Effort & Inspection: normal respiratory effort and able to speak in complete sentences Auscultation: clear to auscultation bilaterally, no crackles, no rales, no rhonchi and no wheezes Other: Barking cough noted Cardio: Palpation: normal PMI Rate: regular rate Rhythm: regular rhythm Heart sounds: S1 normal heart sound present and S2 normal heart sound present Neuro: General: oriented to person, oriented to place and oriented to time Cranial nerves: Yes CN's II-XII intact bilaterally Psych: Appearance: grossly normal Thought process: Normal thought process present Insight: Good insight present (Psych) Judgement: Good judgement present (Psych) Course Course Level of Care: Express Care Visit Vital Signs Vital signs: Vital Signs Temperature 96.4 F L 11/12/24 08:57 Pulse Rate 67 11/12/24 08:57 Respiratory Rate 16 11/12/24 08:57 Blood Pressure 103/75 11/12/24 08:57 Pulse Oximetry 98 11/12/24 08:57 Oxygen Delivery Room Air 11/12/24 08:57 Temperature 96.4 F L 11/12/24 08:57 Pulse Rate 67 11/12/24 08:57 Respiratory Rate 16 11/12/24 08:57 Blood Pressure 103/75 11/12/24 08:57 Pulse Oximetry 98 11/12/24 08:57 Oxygen Delivery Room Air 11/12/24 08:57 Reviewed MDM - URI/Sore Throat MDM Narrative Medical decision making narrative: History and exam consistent with bronchitis. Start steroid burst, cough suppressant, bronchodilator. Patient no distress, stable for discharge home. Discharge instructions reviewed with patient, as well as provided in writing per nursing staff. The instructions also include specific and strict return/GO TO THE ER as well as f/u information. All questions have been answered, and the patient deny any further questions with discharge and discharge plan. Some parts of this dictation were generated by voice recognition software and may contain typographical and/or grammatical inaccuracies. Differential Diagnosis Differential diagnosis: Likely upper respiratory infection and viral infection Medical Records Attestation: I reviewed the patient's medical records. Discharge Plan Discharge Clinical Impression: Bronchitis Patient Disposition: Home, Self-Care Condition: Stable Instructions: Antibiotic Form, Acute Bronchitis (ED) Additional Instructions: Take medications as prescribed. Follow with primary care provider. Emergency department for any new or worse symptoms Patient Language: Cook Islander Prescriptions: New prednisone 50 mg tablet 50 mg PO DAILY Qty: 5 0RF albuterol sulfate [Ventolin HFA] 90 mcg/actuation HFA aerosol inhaler 2 puff inhalation QID PRN (Reason: shortness of breath or wheezing) Qty: 8.5 0RF benzonatate 200 mg capsule 200 mg PO TID PRN (Reason: cough) Qty: 30 0RF No Action cyanocobalamin (vitamin B-12) 1,000 mcg/mL solution 100 mcg IM MONTHLY dicyclomine 20 mg tablet 20 mg PO TID PRN (Reason: abdominal pain) Follow-up/Referrals: Williams,Ann Roy MD [Primary Care Provider] - 2 Weeks Time of Disposition: 09:16
== END 2024-11-12 09:20 | disposition home or self-care (01) ==
PROVIDERS: Emergency Provider Nurse Practitioner Family; PCP Internal Medicine Gastroenterology
DX: J40 Bronchitis, not specified as acute or chronic (principal); J45.909 Unspecified asthma, uncomplicated; K50.90 Crohn's disease, unspecified, without complications; K21.9 Gastro-esophageal reflux disease without esophagitis; E78.5 Hyperlipidemia, unspecified; G62.9 Polyneuropathy, unspecified; K31.84 Gastroparesis
CPT/HCPCS: 99213; G0463

== ENCOUNTER 2025-03-21 11:31 | Emergency (ER) | payer OTHER, SELFPAY ==
[2025-03-21 11:37] VITALS: BP 104/75; PULSE 76; RESP 16; TEMP 36.6; O2SAT 99
[2025-03-21 12:00] LABS: EDSTREPNEGPOS1 Negative (Negative)
--- NOTE | 2025-03-21 12:06 | ED_ITS ---
HPI - URI/Sore Throat General Chief Complaint: Ear Stated Complaint: ear pain/sore throat Time Seen by Provider: 03/21/25 12:00 Source: patient and RN notes reviewed Mode of arrival: ambulatory Limitations: no limitations History of Present Illness HPI Narrative: 39-year-old female presents Express Care complaining of upper respiratory symptoms for approximately 5 days. Patient reports cough, congestion, mucopur ulent nasal discharge, bilateral ear pain. Does states symptoms are getting progressively worse over the last couple days. Patient denies any fevers, body aches, chills, nausea, vomiting, diarrhea, chest pain, shortness of breath. Patient is not taking [id number] help with symptoms. Related Data Home Medications ?Medication ?Instructions ?Recorded ?Confirmed ?Last Taken ?Type cyanocobalamin (vitamin B-12) 100 mcg IM MONTHLY 11/12/24 03/09/25 Unknown History 1,000 mcg/mL injection solution dicyclomine 20 mg tablet 20 mg PO TID PRN abdominal pain 11/12/24 03/09/25 Unknown History budesonide-formoterol HFA 160 inhalation 03/21/25 Unknown History mcg-4.5 mcg/actuation aerosol inhaler (Symbicort) epinephrine 0.3 mg/0.3 mL 03/21/25 Unknown History injection, auto-injector Allergies Allergy/AdvReac Type Severity Reaction Status Date / Time bee venom protein (honey bee) Allergy Severe Anaphylaxis Verified 03/09/25 11:33 diclofenac (From Pennsaid) Allergy Severe Itching Verified 03/09/25 11:33 fentanyl Allergy Severe Other Verified 03/09/25 11:33 aripiprazole Allergy Unknown HIVES Verified 03/09/25 11:33 doxycycline Allergy Unknown Other Verified 03/09/25 11:33 sumatriptan Allergy Unknown HIVES Verified 03/09/25 11:33 codeine AdvReac Unknown STOMACH Verified 03/09/25 11:33 ISSUE'S Contrast Media Allergy Unknown HIVES Uncoded 03/09/25 11:33 TRAMADOL HCL Allergy Unknown HIVES Uncoded 03/09/25 11:33 Review of Systems Review of Systems: CONSTITUTIONAL: Denies fever, chills, body aches, or sweats. EYES: Denies visual changes, redness, or discharge. ENT: Negative for rhinorrhea. Positive for congestion, sore throat, or otalgia. CARDIOVASCULAR: Denies chest pain, palpitations, or edema. RESPIRATORY: Positive for cough. Negative for dyspnea or wheezing. GASTROINTESTINAL: Denies abdominal pain, nausea, vomiting, or diarrhea. GENITOURINARY: Denies dysuria or hematuria. SKIN: Denies rash or itching. MUSCULOSKELETAL: Denies back pain, joint pain, or myalgia. NEUROLOGIC: Denies headache, numbness, or weakness. PSYCHIATRIC: Denies anxiety or depression. All other systems reviewed are negative, except as documented in HPI. [facility], [facility] Past Medical History Medical History Dilation of esophagus Encounter for prophylactic removal of fallopian tube Pancreatitis Bladder irritability Sinusitis Vitamin D deficiency GERD (gastroesophageal reflux disease) Pneumonia Asthma Insomnia Peptic ulcer Irritable bowel disease Post traumatic stress disorder Crohn disease Hyperlipidemia Nondiabetic gastroparesis Stricture of esophagus Gastritis Pain in both hands Pain in both feet Plantar fasciitis of left foot Neuropathy Acute sinusitis Polyneuropathy Surgical History Surgical History History of biopsy Stomach H/O tubal ligation H/O LEEP History of hysterectomy History of cholecystectomy Family History Family History Mother Depression Sibling Depression Alcohol abuse Blood coagulation disorder Disorder of thyroid gland Hypertension Mother Hypertension Hypercholesteremia Heart disease Disorder of thyroid gland Blood coagulation disorder Asthma Alcohol abuse Son Autoimmune disease Vitiligo Alopecia Sibling Alcohol abuse ADHD (attention deficit hyperactivity disorder) Depression Social History Social History Smoking status: Never smoker Alcohol intake: never Substance use: never Do You Feel Safe in your Home?: Yes Lack of Transportation: No Lack of Food: Never True Current Housing: I Have Housing Concerned About Future Housing: No Difficulty Paying Gas/Electric Bills: No Difficulty Paying for Meds: YES Currently Unemployed: No Education: High School Diploma/GED Difficulty w/ Childcare or Family Care: No Comments At the time of my signature, I reviewed and agree with the nursing past medical, surgical, social, and family history. There is no relevant family history pertinent to the patient complaint. Exam Narrative: GENERAL: This is a well-nourished, well-developed adult, in no apparent distress. They are non ill-appearing, nontoxic appearing. HEAD: normocephalic, atraumatic. EYES: Sclera clear/white. Vision is grossly intact. Conjunctiva normal bilaterally. Extraocular movements intact. EARS: External ears normal, auditory canals clear and without drainage, TMs without erythema or perforation, bilateral effusions behind TMs present. Hearing grossly intact. NOSE: External nose normal with no obvious nasal discharge, nasal turbinates erythematous with exudate present, no rhinorrhea. Frontal sinuses tenderness to palpation. THROAT: Mucous membranes moist, posterior pharynx erythema without swelling without exudate. Uvula is midline. Postnasal drip present. NECK: Neck supple, non-tender without lymphadenopathy, masses or thyromegaly. CARDIOVASCULAR: Regular rate and rhythm without murmurs, gallops, or rubs. RESPIRATORY: Clear to auscultation. Breath sounds equal bilaterally. No wheezes, rales, or rhonchi. Respiratory rate normal, respiratory effort nonlabored, no respiratory distress SKIN: warm, Dry, intact with no suspicious lesions or rash, good texture and turgor. NEURO: awake, alert, and oriented to person, place and time. There were no obvious focal neurologic abnormalities. EXTREMITIES: No joint tenderness, effusion, or edema noted. BACK: Nontender without deformity. Course Course Emergency Course: Portions of this record may have been created with voice recognition software Level of Care: Express Care Visit Vital Signs Vital signs: Vital Signs Temperature 97.9 F 03/21/25 11:37 Pulse Rate 76 03/21/25 11:37 Respiratory Rate 16 03/21/25 11:37 Blood Pressure 104/75 03/21/25 11:37 Pulse Oximetry 99 03/21/25 11:37 Oxygen Delivery Room Air 03/21/25 11:37 Temperature 97.9 F 03/21/25 11:37 Pulse Rate 76 03/21/25 11:37 Respiratory Rate 16 03/21/25 11:37 Blood Pressure 104/75 03/21/25 11:37 Pulse Oximetry 99 03/21/25 11:37 Oxygen Delivery Room Air 03/21/25 11:37 MDM - URI/Sore Throat MDM Narrative Medical decision making narrative: Rapid strep negative. Throat culture pending. Given patient's worsening symptoms is likely she has developed a bacterial sinusitis. Treat with Augmentin. Discussed physical exam findings. Advised supportive measures and signs/symptoms to go to the ER. Pt is appropriate for outpt treatment and f/u. Differential Diagnosis Differential diagnosis: Likely upper respiratory infection, sinusitis, viral infection and pharyngitis Lab Data Attestation: I reviewed the patient's lab results. Labs: Lab Results 03/21/25 Range/Units 11:40 POC Grp A Strep Screen Negative (Negative) Discharge Plan Discharge Clinical Impression: Sinusitis Qualifiers: Sinusitis location: unspecified location Chronicity: acute Recurrence: non- recurrent Qualified Code(s): J01.90 - Acute sinusitis, unspecified Patient Disposition: Home Condition: Stable Instructions: Antibiotic Form, Sinusitis (ED) Additional Instructions: Take the antibiotics as directed and complete the course even if you start to feel better. You may use a Neti pot saline rinse 3 times a day with lukewarm distilled water Continue to take Tylenol or Motrin for pain. Use a humidifier or vaporizer at night. Drink plenty of water. 8-10 glasses per day. Use flonase 2 times per day for 5 days then as needed Take mucinex 2 times per day and be sure to take with 8oz of water. Follow up with Primary provider in 3-5 days Please go to the ER if he develops any difficulty breathing, worsening symptoms, or any other concerns Patient Language: Danish Prescriptions: New amoxicillin-pot clavulanate 875-125 mg tablet 1 tablet PO Q12H 7 Days Qty: 14 0RF No Action cyanocobalamin (vitamin B-12) 1,000 mcg/mL solution 100 mcg IM MONTHLY dicyclomine 20 mg tablet 20 mg PO TID PRN (Reason: abdominal pain) albuterol sulfate [Ventolin HFA] 90 mcg/actuation HFA aerosol inhaler 2 puff inhalation QID PRN (Reason: shortness of breath or wheezing) Qty: 8.5 0RF epinephrine 0.3 mg/0.3 mL auto-injector budesonide-formoterol [Symbicort] 160-4.5 mcg/actuation HFA aerosol inhaler INHALATION Follow-up/Referrals: PHYSICIAN,PERFECT BIND MACHINE OPERATOR [Primary Care Provider] - Time of Disposition: 12:09
== END 2025-03-21 12:15 | disposition home or self-care (01) ==
DX: J01.90 Acute sinusitis, unspecified (principal); K21.9 Gastro-esophageal reflux disease without esophagitis; K50.90 Crohn's disease, unspecified, without complications; E78.5 Hyperlipidemia, unspecified; K31.84 Gastroparesis; G62.9 Polyneuropathy, unspecified
CPT/HCPCS: 87081; 87880; 99213; G0463

== ENCOUNTER 2025-03-31 11:00 | Emergency (ER) | payer OTHER, SELFPAY ==
--- NOTE | 2025-03-31 11:10 | ED_ITS ---
HPI - URI/Sore Throat General Chief Complaint: Upper Respiratory Infection Stated Complaint: cough Time Seen by Provider: 03/31/25 11:20 Source: patient Mode of arrival: ambulatory Limitations: no limitations History of Present Illness HPI Narrative: Keri is a 40-year-old female patient presenting to the clinic today with complaints of sinus congestion, cough, frontal sinus headache, and nasal drainage. She reports her symptoms have been going on for over 2 weeks. States that she was seen here a week and half ago and prescribed antibiotics for a sinus infection. She has taken all the antibiotics but does not feels though her symptoms have improved. She denies any fevers, chills, body aches. Denies any chest pain or shortness of breath. Is blowing out clear nasal drainage in coughing up clear phlegm. Feels as though drainage is coming out of her eyes. MD elicited complaint: sore throat and nasal congestion Related Data Home Medications ?Medication ?Instructions ?Recorded ?Confirmed ?Last Taken ?Type cyanocobalamin (vitamin B-12) 100 mcg IM MONTHLY 11/12/24 03/09/25 Unknown History 1,000 mcg/mL injection solution dicyclomine 20 mg tablet 20 mg PO TID PRN abdominal pain 11/12/24 03/09/25 Unknown History epinephrine 0.3 mg/0.3 mL 03/21/25 Unknown History injection, auto-injector Allergies Allergy/AdvReac Type Severity Reaction Status Date / Time bee venom protein (honey bee) Allergy Severe Anaphylaxis Verified 03/31/25 11:07 diclofenac (From [employer]) Allergy Severe Itching Verified 03/31/25 11:07 fentanyl Allergy Severe Other Verified 03/31/25 11:07 aripiprazole Allergy Unknown HIVES Verified 03/31/25 11:07 doxycycline Allergy Unknown Other Verified 03/31/25 11:07 sumatriptan Allergy Unknown HIVES Verified 03/31/25 11:07 codeine AdvReac Unknown STOMACH Verified 03/31/25 11:07 ISSUE'S Contrast Media Allergy Unknown HIVES Uncoded 03/31/25 11:07 TRAMADOL HCL Allergy Unknown HIVES Uncoded 03/31/25 11:07 Review of Systems Review of Systems: Pertinent positives per HPI. Patient denies any fever, chills, rash, headache, visual changes, dizziness, cough, shortness of breath, chest pain, palpitations, nausea, vomiting, diarrhea, constipation, abdominal pain, or any urinary issues. [facility] Past Medical History Medical History Dilation of esophagus Encounter for prophylactic removal of fallopian tube Pancreatitis Bladder irritability Sinusitis Vitamin D deficiency GERD (gastroesophageal reflux disease) Pneumonia Asthma Insomnia Peptic ulcer Irritable bowel disease Post traumatic stress disorder Crohn disease Hyperlipidemia Nondiabetic gastroparesis Stricture of esophagus Gastritis Pain in both hands Pain in both feet Plantar fasciitis of left foot Neuropathy Acute sinusitis Polyneuropathy Surgical History Surgical History History of biopsy Stomach H/O tubal ligation H/O LEEP History of hysterectomy History of cholecystectomy Family History Family History Mother Depression Sibling Depression Alcohol abuse Blood coagulation disorder Disorder of thyroid gland Hypertension Mother Hypertension Hypercholesteremia Heart disease Disorder of thyroid gland Blood coagulation disorder Asthma Alcohol abuse Son Autoimmune disease Vitiligo Alopecia Sibling Alcohol abuse ADHD (attention deficit hyperactivity disorder) Depression Social History Social History Smoking status: Never smoker Alcohol intake: never Substance use: never Do You Feel Safe in your Home?: Yes Lack of Transportation: No Lack of Food: Never True Current Housing: I Have Housing Concerned About Future Housing: No Difficulty Paying Gas/Electric Bills: No Difficulty Paying for Meds: YES Currently Unemployed: No Education: High School Diploma/GED Difficulty w/ Childcare or Family Care: No Comments At the time of my signature, I reviewed and agree with the nursing past medical, surgical, social, and family history. There is no relevant family history pertinent to the patient complaint. Exam Narrative: General: Well-developed, well nourished, in no apparent distress Head: Normocephalic, atraumatic Eyes: Pupils equally round and reactive to light bilaterally, EOM intact, sclera and conjunctive clear, no discharge, lids normal Ears: TMs intact and clear, ear canals clear, no drainage, grossly hearing normal. Nose: Nares patent, clear nasal discharge, monitor inflammation, frontal sinus tenderness. Mouth: Oral pharynx without lesions or masses, good dentition, MMM. Postnasal drip Neck: Supple, trachea midline, no enlargement of anterior or posterior cervical nodes, no thyroid masses or goiter palpable. Cardio: Regular rate and rhythm, s1 and s2 normal, no murmur appreciated. Resp: Clear to auscultation bilaterally, no rhonchi, rales, wheezing or rubs Course Course Emergency Course: Portions of this record may have been created with voice recognition software. Level of Care: Express Care Visit Vital Signs Vital signs: Vital signs reviewed MDM - URI/Sore Throat MDM Narrative Medical decision making narrative: At the time of visit patient is resting comfortably on the exam table. Patient appears to be nontoxic. Plan: I suspect patient has lingering sinusitis. Nasal drainage is clear so I suspect the infection has improved however patient does have congestion and is reporting a sinus headache. Will place the patient on prednisone to help dry up congestion. Supportive measures were discussed with the patient and they voiced understanding discharge instructions and agrees to treatment plan. Return precautions reviewed Differential Diagnosis Differential diagnosis: Likely upper respiratory infection, otitis media, sinusitis, viral infection, bronchitis, influenza, pharyngitis and other (COVID) Discharge Plan Discharge Clinical Impression: Sinusitis Qualifiers: Sinusitis location: frontal Chronicity: acute Recurrence: non-recurrent Qualified Code(s): J01.10 - Acute frontal sinusitis, unspecified Patient Disposition: Home Condition: Stable Instructions: Antibiotic Form, Rhinosinusitis (ED) Additional Instructions: Take prescription medications only as prescribed-prednisone Increase fluids and stay well hydrated Tylenol/motrin for pain/fever Flonase and OTC antihistamines as directed Vicks vapor rub to open sinuses Sinus rinses for congestion Cepacol spray, cough drops, throat lozenges, warm tea with honey/lemon, gargle salt water to soothe throat BRAT diet for diarrhea Clear liquids x 24 hours then advance as tolerated for nausea/vomiting Go to the ED if you develop a worsening in your condition- high fever not controlled by Tylenol or Motrin, dehydration, weakness, lethargy, shortness of breath, or chest pain. Follow up with your PCP in 3-5 days if symptoms persist. Patient Language: Mexican Prescriptions: New prednisone 20 mg tablet 40 mg PO DAILY 5 Days Qty: 10 0RF No Action cyanocobalamin (vitamin B-12) 1,000 mcg/mL solution 100 mcg IM MONTHLY dicyclomine 20 mg tablet 20 mg PO TID PRN (Reason: abdominal pain) epinephrine 0.3 mg/0.3 mL auto-injector Follow-up/Referrals: UNKNOWN,DOCTOR [Primary Care Provider] - Time of Disposition: 11:27 Quality NIHSS Nursing Documentation ED NIHSS nursing documentation: reviewed/agree
[2025-03-31 11:15] VITALS: BP 104/69; PULSE 96; RESP 16; TEMP 36.9; O2SAT 100
== END 2025-03-31 11:36 | disposition home or self-care (01) ==
PROVIDERS: Emergency Provider Nurse Practitioner Family
DX: J01.10 Acute frontal sinusitis, unspecified (principal); E78.5 Hyperlipidemia, unspecified
CPT/HCPCS: 99213; G0463

== ENCOUNTER 2025-04-16 13:21 | Outpatient (CLI) | payer OTHER, SELFPAY ==
--- NOTE | ~2025-04-16 | MR_ITS ---
MRI of the right shoulder Technique: Axial proton-density fat-sat images, coronal proton density fat-sat and T2 fat-sat images, and sagittal T1-weighted and T2 fat-sat images were acquired. Clinical History: Other shoulder lesion Findings: AC joint is essentially unremarkable. Coracoclavicular, coracoacromial, and coracohumeral l igaments appear intact. Supraspinatus and infraspinatus tendons are intact, without partial or full-thickness tear. Subscapul milagros tendon is intact. Tendon of long head of the biceps is intact. No labral tear evident. Inferior glenohumeral ligament is intact. No degenerative change or effusion of the glenohumeral join t. There is mild fluid distention of the subacromial/subdeltoid bursa. No muscle atrophy or edema. Impression: Mild subacromial/subdeltoid bursitis. Reviewed, dictated and finalized at [facility]. Impression: Mild subacromial/subdeltoid bursitis.
--- OUTSIDE RECORDS SUMMARY | 2025-04-16 13:25 | XMS_ITS | Data Portability ---
Author Organization [facility] - [facility] Walk-in Appointment Scheduler, Main Office Address [address] [place] [address] Care Team Providers Care Ordering Machine Operator Name Role Phone YARA HAQUE Primary Care Provider [phone] YARA HAQUE Referring Provider Assessment No assessment recorded. Plan of Treatment Reminders Order Date Submit Date Provider Last Modified By Organization Details Last Modified Time Details Appointments None recorded. Lab None recorded. Referral None recorded. Procedures None recorded. Surgeries None recorded. Imaging None recorded. Medication Orders colestipol 1 gram tablet 2023 024 [facility] [address] [place], [address], 16:17:39 dicyclomine 20 mg tablet 2023 024 [facility] [address] [place], [address], 4 15:11:51 Cholestyram ine Light 4 gram oral powder 2023 024 [facility] [address] [place], [address], 15:11:50 Patient TargetsNo targets recorded. Patient Instructions Encounter Date Encounter Id Patient Instructions Last Modified By Organization Details Last Modified Time 05/11/2024 [id number] PT WITH SX OF POST CANDY SYNDROME . TRY QUESTRAN . PT WITH ABD CRAMPING /IBS-D . TRY DICYCLOMINE . PT C/O LOW VIT D . ADD CALTRATE TO HER REGIMEN . PT C/O LEG CRAMPING . TRY MAGNESIUM GLYCINATE . F/U IN 4 WEEKS . [email or web address] Not available 05/11/2024 15:11:30 09/07/2024 [id number] PT WITH POST CANDY SYNDROME . TRY COLESTIPOL1 GM , 2 TABS DAILY . TRY DICYCLOMINE 10 MG DAILY AND THEN NEEDED . CALL WITH RESULTS ON THURSDAY . IF OK F/U IN 3 MTHS . Not available 09/07/2024 16:17:13 Reason for Referral None Reported. Results Created Date Observation Date Name Description Value Unit Range Abnormal Flag Note LastModifiedBy Organization Detail LastModifiedTime 01/15/20 22 01/14/2022 MRI, ankle , w/o contr ast No observ ation record ed. 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 COMPAR AGUSTIN: Right foot radiog raphs dated 2021. TECHNI QUE: Multip lanar multis equenc e noncon trast MR images of the right ankle were perfor med. FINDIN GS: Bones: No eviden ce of acute fractu re throug hout the right ankle. No eviden ce of talar dome osteoc hondra l lesion . Ligame nts: The anteri or and software build engineer ior talofi bular ligame nts, anteri or and Page 1 of 3 [facility] t Name: TAL JONES A Access ion #: [id number] Sex: F : 1984 6 Exam Date: 2:02 PM Exam Name: MRI ANKLE RT WO Admitt ing Diagno sis(es ): software build engineer ior tibiof ibular ligame nts, calcan eofibu lar ligame nt, and deltoi d ligame nt are intact . Tendon s: No eviden ce of tendon tear or tenosy noviti s involv ing the tendon s of the right ankle. There is a multic entric access ory navicu lar bone. Small planta r calcan eal bone spur and Achill es insert ion enthes ophyte are presen t. There is trace fluid anteri or to the distal Achill es tendon . The Achill es tendon and planta r fascia demons trate normal morpho logy and signal otherw ise. Joints : There are small margin al osteop hytes extend ing dorsal ly from the talona vicula r joint. No there are small ankle and subtal ar effusi ons. There is subcut aneous edema of the anteri or aspect of the distal lower leg.. IMPRES MADALYN: 1. No fractu re or bone marrow edema of the right ankle. 2. The major ligame nts of the right ankle are intact . 3. Small planta r calcan eal bone spur and Achill es insert ion enthes ophyte are presen t, with otherw ise normal signal and morpho logy of the Achill es tendon and planta r fascia . 4. Mild pre Achill es bursit is. 5. Mild talona vicula r osteoa rthrit is. Create d and electr onical ly signed by: Jaden triana MD Signed Date: 3:09 PM (CT) Dictat ed by: Jaden triana MD DD: 3:09 PM (CT) Page 2 of 3 [facility] Patinida t Name: TAL JONES A Access ion #: [id number] Sex: F : 1984 6 Exam Date: 2:02 PM Exam Name: MRI ANKLE RT WO Admitt ing Diagno sis(es ): DT: 3:09 PM (CT) Page 3 of 3 [id number] [facility] (Imaging) [address] [place], [address], 12/04/2022 00:06:10 01/16/20 22 01/14/2022 MRI, ankle , w/o contr ast No observ ation record ed. [id number] [facility] [address] [place], [address], 12/04/2022 00:06:10 01/16/20 MRI, ankle , w/o contr ast [facility] [address] [place] [address] Patien t Name: TAL JONES Access ion #: [id number] Sex: F : 1984 6 Locati on: RA2 Attend ing Physic la: SUDHA MOLINA Physic la: SUDHA MOLINA Exam Date: 2:02 PM Exam Name: MRI ANKLE LT W/O Admitt ing Diagno sis(es ): RADIOL OGY REPORT - FINAL EXAM: MRI ANKLE LT W/O HISTOR Y: planta r fascii tis, software build engineer ior tibial tendon itis 36-yea r-old female with left ankle and heel pain, no known injury . COMPAR AGUSTIN: Left foot radiog raphs dated 2021. TECHNI QUE: Multip lanar multis equenc e noncon trast MR images of the left ankle were perfor med. JEANIEIN GS: Bones: No eviden ce of acute fractu re throug hout the left ankle. No eviden ce of talar dome osteoc hondra l lesion . Ligame nts: The anteri or and software build engineer ior talofi bular ligame nts, anteri or and Page 1 of 3 [facility] Name: TAL JONES A Access ion #: [id number] Sex: F : 1984 6 Exam Date: 022 2:02 PM Exam Name: MRI ANKLE LT W/O Admitt ing Diagno sis(es ): software build engineer ior tibiof ibular ligame nts, calcan eofibu lar ligame nt, and deltoi d ligame nt are intact . Tendon s: There is a small amount of fluid around the tibial is software build engineer ior tendon . No other eviden ce of tendon tear or tenosy noviti s involv ing the tendon s of the right ankle. Small planta r calcan eal bone spur and Achill es insert ion enthes ophyte are presen t. The Achill es tendon and planta r fascia demons trate normal morpho logy and signal otherw ise. Joints : There are margin al osteop hytes extend ing dorsal ly from the talona vicula r joint. There are trace effusi ons in the tibiot alar, subtal ar, and midfoo t joints . 7 mm gangli on cyst extend s dorsol ateral ly from the 3rd MTP joint (image 8, series 801). There is subcut aneous edema of the thuan medial aspect of the distal lower leg. IMPRES MADALYN: 1. Mild tibial is software build engineer ior tenosy noviti s. 2. The major ligame nts of the left ankle are intact . 3. Small planta r calcan eal bone spur and Achill es insert ion enthes ophyte are presen t. There is otherw ise normal signal and morpho logy of the Achill es tendon and planta r fascia . No MRI eviden ce of acute planta r fascii tis. 4. Mild talona vicula r osteoa rthrit is. Create d and electr onical ly signed by: Jaden triana MD Signed Date: 022 9:01 AM (CT) Dictat ed by: Jaden triana MD Page 2 of 3 [facility] Name: TAL JONES A Access ion #: [id number] Sex: F : 1984 6 Exam Date: 2:02 PM Exam Name: MRI ANKLE LT W/O Admitt ing Diagno sis(es ): DD: 9:01 AM (CT) DT: 9:01 AM (CT) Page 3 of 3 [id number] [facility] ([facility] [address] [place], [address], 12/04/2022 00:06:10 Result Notes Documentation Provider Name and Address Organization Details Recorded Time Mri, Ankle, W/o Contrast : [facility] [address] [place] [address] Patient Name: KIM JONES Sex: F : 1985 Location: [facility] Attending Physician: SUDHA ROQUE Ordering Physician: SUDHA ROQUE Exam Date: 01/14/2022 2:02 PM Exam Name: MRI ANKLE RT WO Admitting Diagnosis(es): RADIOLOGY REPORT - FINAL EXAM: MRI ANKLE RT WO HISTORY: plantar fasciitis, posterior tibial tendonitis 36-year-old female with right ankle and heel pain. COMPARISON: Right foot radiographs dated 10/14/2021. TECHNIQUE: Multiplanar multisequence noncontrast MR images of the right ankle were performed. FINDINGS: Bones: No evidence of acute fracture throughout the right ankle. No evidence of talar dome osteochondral lesion. Ligaments: The anterior and posterior talofibular ligaments, anterior and Page 1 of 3 [facility] Patient Name: KIM JONES Sex: F : 1985 Exam Date: 01/14/2022 2:02 PM Exam Name: MRI ANKLE RT WO Admitting Diagnosis(es): posterior tibiofibular ligaments, calcaneofibular ligament, and deltoid ligament are intact. Tendons: No evidence of tendon tear or tenosynovitis involving the tendons of the right ankle. There is a multicentric accessory navicular bone. Small plantar calcaneal bone spur and Achilles insertion enthesophyte are present. There is trace fluid anterior to the distal Achilles tendon. The Achilles tendon and plantar fascia demonstrate normal morphology and signal otherwise. Joints: There are small marginal osteophytes extending dorsally from the talonavicular joint. No there are small ankle and subtalar effusions. There is subcutaneous edema of the anterior aspect of the distal lower leg.. IMPRESSION: 1. No fracture or bone marrow edema of the right ankle. 2. The major ligaments of the right ankle are intact. 3. Small plantar calcaneal bone spur and Achilles insertion enthesophyte are present, with otherwise normal signal and morphology of the Achilles tendon and plantar fascia. 4. Mild pre Achilles bursitis. 5. Mild talonavicular osteoarthritis. Created and electronically signed by: Jaden Dolan MD Signed Date: 01/14/2022 3:09 PM (CT) Dictated by: Jaden Dolan MD (CT) Page 2 of 3 [facility] Patient Name: KIM JONES Sex: F : 1985 Exam Date: 01/14/2022 2:02 PM Exam Name: MRI ANKLE RT WO Admitting Diagnosis(es): (CT) Page 3 of 3 Not Available [facility] 12/04/2022 00:06:11 Mri, Ankle, W/o Contrast : [address] [address] Patient Name: KIM JONES Sex: F : 1985 Location: [facility] Attending Physician: SUDHA ROQUE Ordering Physician: SUDHA ROQUE Exam Date: 01/14/2022 2:02 PM Exam Name: MRI ANKLE LT W/O Admitting Diagnosis(es): RADIOLOGY REPORT - FINAL EXAM: MRI ANKLE LT W/O HISTORY: plantar fasciitis, posterior tibial tendonitis 36-year-old female with left ankle and heel pain, no known injury. COMPARISON: Left foot radiographs dated 10/14/2021. TECHNIQUE: Multiplanar multisequence noncontrast MR images of the left ankle were performed. FINDINGS: Bones: No evidence of acute fracture throughout the left ankle. No evidence of talar dome osteochondral lesion. Ligaments: The anterior and posterior talofibular ligaments, anterior and Page 1 of 3 [facility] Patient Name: KIM JONES Sex: F : 1985 Exam Date: 01/14/2022 2:02 PM Exam Name: MRI ANKLE LT W/O Admitting Diagnosis(es): posterior tibiofibular ligaments, calcaneofibular ligament, and deltoid ligament are intact. Tendons: There is a small amount of fluid around the tibialis posterior tendon. No other evidence of tendon tear or tenosynovitis involving the tendons of the right ankle. Small plantar calcaneal bone spur and Achilles insertion enthesophyte are present. The Achilles tendon and plantar fascia demonstrate normal morphology and signal otherwise. Joints: There are marginal osteophytes extending dorsally from the talonavicular joint. There are trace effusions in the tibiotalar, subtalar, and midfoot joints. 7 mm ganglion cyst extends dorsolaterally from the 3rd MTP joint (image 8, series 801). There is subcutaneous edema of the anteromedial aspect of the distal lower leg. IMPRESSION: 1. Mild tibialis posterior tenosynovitis. 2. The major ligaments of the left ankle are intact. 3. Small plantar calcaneal bone spur and Achilles insertion enthesophyte are present. There is otherwise normal signal and morphology of the Achilles tendon and plantar fascia. No MRI evidence of acute plantar fasciitis. 4. Mild talonavicular osteoarthritis. Created and electronically signed by: Jaden Dolan MD Signed Date: 01/15/2022 9:01 AM (CT) Dictated by: Jaden Dolan MD Page 2 of 3 [facility] Patient Name: KIM JONES Sex: F : 1985 Exam Date: 01/14/2022 2:02 PM Exam Name: MRI ANKLE LT W/O Admitting Diagnosis(es): (CT) (CT) Page 3 of 3 Not Available [facility] 12/04/2022 00:06:11 Problems Name Problem SNOMED Code Status Onset Date Resolution Date Notes Provider Name and Address Organization Details Recorded Time Tibialis posterior tendinitis 831004550 Active 2021 Not Available [facility] 3 00:04:39 Foot pain 18868508 Active 2021 Not Available [facility] 3 00:04:39 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 Please review this document and add these problems to the patient's chart manually as needed. Problem Notes None recorded. Procedures Surgical History Date Name Laterality Status Provider Name and Address Organization Details Recorded Time cholecystopexy completed SATISH Lemus [employer] [facility] 03/22/2024 10:02:23 fallopian tube excision completed SATISH Lemus [facility] [employer] 03/22/2024 10:02:43 Hysterectomy completed SATISH Lemus [employer] [facility]in App[facility]ment Scheduler 03/22/2024 10:02:54 loop electrosurgical excision procedure completed SATISH Lemus [employer] [facility]in Appointment Scheduler 03/22/2024 10:03:04 Tubal Ligation completed Amy Muro Manuela [employer] [facility] 03/22/2024 10:03:12 dilation of esophagus completed SATISH Lemus [employer] [facility] 03/22/2024 10:03:25 Biopsy completed SATISH Lemus [place] [facility] [place] [employer] [facility] 03/22/2024 10:03:35 laser uterosacral nerve ablation completed SATISH Lemus [facility] 03/22/2024 10:03:53 Imaging Results None recorded. Procedure Notes None recorded. Medical Equipment None Reported. Allergies Allergen ID Allergen Name Allergen Category Reaction Reaction Severity Criticality Documentation Date Start Date Code Code System Note Provider Name and Address Organization Details Recorded Time 08393 Ultram medicatio n Not available Not available Not available 12/04/2022 10994 6 RxNorm Not Available [facility] 3 00:05:54 60213 codeine medicatio n Not available Not available Not available 12/04/2022 2670 RxNorm Not Available [facility] 3 00:05:54 11225 bee pollen environme nt,medica tion Not available Not available Not available 12/04/2022 56722 7 RxNorm Not Available [facility] 3 00:05:54 49419 Abilify medicatio n Not available Not available Not available 03/22/2024 63390 3 RxNorm SATISH Lemus null, [facility] 4 09:47:11 06735 altretami ne medicatio n Not available Not available Not available 03/22/2024 5296 RxNorm SATISH Lemus null, [facility] [employer] [facility] 4 09:47:24 59346 doxycycli ne Not available Not available Not available Not available 03/22/2024 3640 RxNorm Amy Muro RMA null, [facility] 4 09:47:31 81040 fentanyl medicatio n Not available Not available Not available 03/22/2024 4337 RxNorm Amy Muro RMA null, [facility] 4 09:47:40 11637 Iodinated contrast media (substanc e) medicatio n Not available Not available Not available 03/22/2024 21964 2004 SNOMED SATISH Lemus, [facility] 4 09:47:50 98521 [facility] Not available Not available 03/22/2024 83026 1 RxNorm SATISH Lemus, [facility] 4 09:47:59 Medications Name Sig Start Date Stop Date Status Note LastModified by Organization Details LastModified Time cyclobenzap rine 10 mg tablet 03/22 completed Not Available Not Available Not Available amoxicillin 500 mg capsule TAKE 1 CAPSULE BY MOUTH THREE TIMES DAILY UNTIL GONE 05/11 completed Not Available Not Available Not Available promethazin e-DM 6.25 mg-15 mg/5 mL oral syrup 05/11 completed Not Available Not Available Not Available clindamycin HCl 300 mg capsule 09/07 completed Not Available Not Available Not Available azithromyci n 250 mg tablet 12/19 completed Not Available Not Available Not Available ibuprofen 800 mg tablet TAKE 1 TABLET BY MOUTH EVERY 8 HOURS NEEDED FOR PAIN active Not Available Not Available No t Available fluconazole 150 mg tablet TAKE 1 TABLET BY MOUTH THREE TIMES A WEEK FOR 7 DAYS NEEDED ONLY FOR YEAST VAGINITIS FROM ANTIBIOTI CS. 12/19 completed Not Available Not Available Not Available hydrocodone 5 mg-acetamin ophen 325 mg tablet Take 1 tablet twice a day by oral route as needed for 7 days. 03/22 completed Not Available Not Available Not Available meloxicam 15 mg tablet TAKE 1 TABLET BY MOUTH ONCE DAILY NEEDED FOR 30 DAYS 05/11 completed Not Available Not Available Not Available sucralfate 1 gram tablet TAKE 1 TABLET BY MOUTH 4 TIMES DAILY 05/11 completed Not Available Not Available Not Available metronidazo le 0.75 % (37.5 mg/5 gram) vaginal gel INSERT 1 APPLICATO RFUL VAGINALLY AT BEDTIME FOR 5 DAYS 05/11 completed Not Available Not Available Not Available ondansetron HCl 4 mg tablet 05/11 completed Not Available Not Available Not Available prednisone 20 mg tablet 05/11 completed Not Available Not Available Not Available omeprazole 40 mg capsule,del ayed release TAKE 1 CAPSULE BY MOUTH ONCE DAILY FOR 30 DAYS 05/11 completed Not Available Not Available Not Available triamcinolo ne acetonide 0.1 % topical cream APPLY CREAM TOPICALLY TWICE DAILY FOR 7 DAYS 05/11 completed Not Available Not Available Not Available dicyclomine 20 mg tablet TAKE 1 TABLET BY MOUTH THREE TIMES DAILY NEEDED FOR ABDOMINAL PAIN active Not Available Not Available No t Available pantoprazol e 40 mg tablet,litzy yed release 05/11 completed Not Available Not Available Not Available cyanocobala min (vit B-12) 1,000 mcg/mL injection solution INJECT 1 ML INTRAMUSC ULARLY ONCE A WEEK 05/11 completed Not Available Not Available Not Available Gentle Laxative (bisacodyl) 5 mg tablet,litzy yed release TAKE ALL 4 TABLETS OF DULCOLAX BY MOUTH AT ONE TIME WITH 8 OUNCES OF WATER AT 2 PM THE DAY BEFORE THE COLONOSCO PY 05/11 completed Not Available Not Available Not Available ergocalcife rol (vitamin D2) 1,250 mcg (50,000 unit) capsule TAKE 1 CAPSULE BY MOUTH ONCE A WEEK active Not Available Not Available No t Available lorazepam 1 mg tablet TAKE 1 TABLET BY MOUTH 30 MINUTES BEFORE PROCEDURE 05/11 completed Not Available Not Available Not Available methylpredn isolone 4 mg tablets in a dose pack TAKE BY MOUTH DIRECTED ON INSIDE OF PACKAGE 05/11 completed Not Available Not Available Not Available albuterol sulfate HFA 90 mcg/actuati on aerosol inhaler 03/22 completed Not Available Not Available Not Available colestipol 1 gram tablet Take 2 tablets every day by oral route in the morning for 30 days, for DIARRHEA. 2023 active Not Available Not Available Not Avai lable amoxicillin 875 mg-potassiu m clavulanate 125 mg tablet TAKE 1 TABLET BY MOUTH EVERY 12 HOURS FOR 10 DAYS 12/19 completed Not Available Not Available Not Available duloxetine 30 mg capsule,del ayed release 03/22 completed Not Available Not Available Not Available duloxetine 60 mg capsule,del ayed release 03/22 completed Not Available Not Available Not Available Prevalite 4 gram oral powder MIX 1 SCOOP DIRECTED AND TAKE BY MOUTH EVERY DAY IN THE MORNING active Not Available Not Available No t Available pregabalin 50 mg capsule 05/11 completed Not Available Not Available Not Available cyanocobala min (vitamin B-12) active Not Available Not Available Not Available ClearLax 17 gram/dose oral powder IN A PITCHER, MIX ENTIRE BOTTLE OF MIRALAX IN A 64 OZ. BOTTLE OF YELLOW OR GREEN GATORADE. BEGINNING AT 5PM THE EVENING BEFORE THE COLONOSCO PY, DRINK ONE 8 OZ. GLASS EVERY 15 MINUTES UNTIL COMPLETED . DRINK 4 GLASSES OF WATER AFTER FINISHING MIXTURE. 05/11 completed Not Available Not Available Not Available cyanocobala min (vit B-12) 1,000 mcg/mL injection kit Inject 1 mL every month by subcutane ous route. 05/11 completed Not Available Not Available Not Available ID NOW COVID-19 Test Kit TEST DIRECTED TODAY 03/22 completed Not Available Not Available Not Available COVID-19 test specimen collection TEST DIRECTED TODAY 03/22 completed Not Available Not Available Not Available Vitals Date Recorded Body mass index (BMI) Body height Body weight Provider Name and Address Organization Details Last Updated DateTime 12/19/2021 30.9 kg/m2 157.48 cm 49327.11 g Not Available [facility] 12/04/2022 00:04:30 Date Recorded Body mass index (BMI) Body height Body weight Provider Name and Address Organization Details Last Updated DateTime 01/06/2022 30.9 kg/m2 157.48 cm 60703.11 g Not Available [facility] 12/04/2022 00:04:30 Date Recorded Body mass index (BMI) Body height Body weight Provider Name and Address Organization Details Last Updated DateTime 01/30/2022 30.9 kg/m2 157.48 cm 11721.11 g Not Available [facility] 12/04/2022 00:04:31 Date Recorded Body height Body mass index (BMI) Body weight Heart rate Oxygen saturation Oxygen saturation in Arterial blood by Pulse oximetry Systolic And Diastolic Provider Name and Address Organization Details Last Updated DateTime 157.48 cm 32 kg/m2 00944.6 6 g 78 /min 98 % 98 % 112/78 mm[Hg] SATISH Lemus [place] [facility] [facility] 14:14:53 Date Recorded Body height Body mass index (BMI) Body weight Heart rate Oxygen saturation Oxygen saturation in Arterial blood by Pulse oximetry Systolic And Diastolic Provider Name and Address Organization Details Last Updated DateTime 4 157.48 cm 34.2 kg/m2 95547.7 7 g 80 /min 99 % 99 % 114/80 mm[Hg] SATISH Lemus [place] [facility] 15:53:41 Social History Question Answer Notes LastModified by [facility] Details LastModified Time Tobacco Smoking Status Never Smoker Not Available [facility] 12/04/2022 00:03:11 What Is Your Level Of Caffeine Consumption? None Information not available 03/22/2024 Sex: Unknown Functional Status Question Answer Note LastModified by [facility] Details LastModified Time Do you use any illicit or recreational drugs? No Information not available 03/22/2024 What is your level of alcohol consumption? None Information not available 03/22/2024 Mental Status None recorded. Family History Relationship Description Onset Age of this Age Resolved Age Notes LastModified by Organization Details LastModified Time Mother Hypertensive disorder Not available 2023 09:58:36 Mother Hypercholest erolemia Not available 2023 09:58:47 Mother Heart disease Not available 2023 09:58:56 Mother Disorder of thyroid gland Not available 2023 09:59:08 Mother Diabetes mellitus Not available 2023 09:59:17 Mother Depressive disorder Not available 2023 09:59:30 Mother Blood coagulation disorder Not available 2023 09:59:39 Mother Asthma Not available 0 03/22/2024 09:59:49 Mother Harmful pattern of use of alcohol Not available 2023 09:59:59 Sister Harmful pattern of use of alcohol Not available 2023 10:00:08 Sister Blood coagulation disorder Not available 2023 10:00:17 Sister Depressive disorder Not available 2023 10:00:22 Sister Disorder of thyroid gland Not available 2023 10:00:31 Sister Hypertensive disorder Not available 2023 10:00:37 Brother Harmful pattern of use of alcohol Not available 2023 10:00:45 Brother Attention deficit hyperactivit y disorder Not available 03/22 10:00:56 Brother Depressive disorder Not available 2023 10:01:08 Son Autoimmune disease Not available 2023 10:01:22 Son Vitiligo Not available 03/22/2024 10:01:33 Son Alopecia Not available 03/22/2024 10:01:41 Medical History Condition Response ARTHRITIS Y HEADACHES/MIGRAINES Y GI PROBLEMS Y ANXIETY DISORDER Y ASTHMA Y BOWEL PROBLEMS Y BACK / NECK PROBLEMS Y HEARTBURN / REFLUX Y Gynecological HistoryNo gynecological history recorded. Obstetrics History GPAL:G 0 P 0 0 0 0 Past Encounters Encounter ID Performer Location Encounter Start Date Encounter Closed Date Diagnosis/Indication Diagnosis SNOMED-CT Code Diagnosis ICD10 Code Diagnosis Note [id number] [facility] [place] [address] [place] [address] 10/14/2021 00:00:00 10/14/2021 13:31:56 [id number] [facility] [place] [address] [place] [address] 11/04/2021 00:00:00 11/04/2021 13:00:52 [id number] [facility] [place] [address] [place] [address] 12/19/2021 00:00:00 12/22/2021 19:56:31 [id number] [facility] [place] [address] [place] [address] 01/06/2022 00:00:00 01/06/2022 11:00:34 [id number] [facility] [place] [address] [facility] [address] [place] [address] 01/30/2022 00:00:00 01/30/2022 20:49:17 [id number] Cha Corley MD [facility] General Surgery [address] [facility] [address] [place] [address] 05/11/2024 14:10:02 05/11/2024 14:54:05 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 Abdominal pain 93370212 R10.9 [id number] Cha Corley MD [facility] General Surgery [address] [address] 09/07/2024 15:51:49 09/07/2024 16:11:46 Postcholecystectomy syndrome 38030361 K91.5 Abdominal pain 92014503 R10.9 Health Concerns Section Related Observation LastModified by Organization Detai ls LastModified Time None Recorded Concern Status LastModified by Organization Details LastModified Time None Recorded Advance Directives Directive None Recorded Payers Insurance Date Sequence Insurance Name Policy Number Policy Leung Covered Member ID Leung Member ID Guarantor Name 09/29/2024 1 [facility] - DOS ON OR AFTER 21 (MEDICAID REPLACEMENT - HMO) Kim Keith [id number] Kim Jones 09/04/2024 2 [place] [employer] [facility] [employer] Kim Jones [id number] Kim Jones Notes Date Note Type Note Provider Name and Address Organization Details Recorded Time 05/11/2024 text/html KIM WAS SEEN IN THE OFFICE TODAY FOR EVALUATION . PT C/O RUQ . SHE IS S/P LAP CANDY AND PAIN DID NOT RESOLVE . PT WAS DR GOVEA . S/P ERCP X 2 AND DEVELOPED POST ERCP PANCREATITIS . PT C/O DIARRHEA 3-8 X DAILY .SX ARE ASSOCIATED WITH RECTAL BURNING .SX ARE PRECEEDED BY CRAMPING AND RESOLVE AFTERWARDS . SHE IS S/P EGD IN , COLON IN . A FEW POLYPS WERE FOUND . 10 YR F/U WAS RECOMMENDED . Cha Corley MD [address], [facility] [address], [place], [address], [employer] [facility] 05/11/2024 15:11:48 09/07/2024 text/html KIM WAS SEEN IN THE OFFICE TODAY FOR A F/U. PT HAS POST CANDY SYNDROME . PT WAS RXED CHOLESTYRAMINE , HOWEVER THIS CAUSES SEVERE N/V. DICYCLOMINE LEADS TO CONSTIPATION . Cha Corley MD [address], [facility] [address], [place], [address], [employer] 09/07/2024 16:18:27 OBGyn Episode No OBEpisode recorded.
--- OUTSIDE RECORDS SUMMARY | 2025-04-16 13:25 | XMS_ITS | Clinical Summary ---
Author Organization [facility] Address [facility] [place] [address] Care Team Providers Care Delivery Engineer Name Role Phone Unavailable Primary Care Provider Unavailabl e Social History Tobacco Use Types Packs/Day Years Used Date Smoking Tobacco: Never Assessed Comments Unknown Sex and Gender Information Value Date Recorded Sex Assigned at Not on file Legal Sex Female 8:26 PM CDT Gender Identity Not on file Sexual Orientation Not on file Plan of Treatment Health Maintenance Due Date Last Done Comments Cervical Cancer Screening Pa p Smear (Age 30 to 64) Every 3 Years 1986 Annual Physical 1989 Hepatitis C 2004 DTaP, Tdap and Td Vaccines ( 1 - Tdap) 2005 Hepatitis B Vaccines (1 of 3 - 19+ 3-dose series) 2005 Cervical Cancer Screening Pa p with HPV Testing (Age 30 to 64) Every 5 Years 2016 Cervical Cancer Screening with HPV 2016 COVID-19 Vaccine ( - 2023-2 5 season) 2024 HPV Vaccines Aged Out No longer eligi ble based on patient's age to complete this topic Meningococcal B Vaccine Aged Out No l onger eligible based on patient's age to complete this topic Meningococcal Vaccine Aged Out No manuel he eligible based on patient's age to complete this topic Pneumococcal Vaccine: Pediat rics (0 to 5 Years) and At-Risk Patients (6 to 49 Years) Aged Out No longer eligible b ased on patient's age to complete this topic RSV Immunizations Under 20 Months Aged Out No longer eligible based on patient's age to complete this topic
--- OUTSIDE RECORDS SUMMARY | 2025-04-16 13:25 | XMS_ITS | Referral Summary ---
Author Organization [facility] Address [address] [place] [id number] Care Team Providers Care Supervisor [employer] Name Role Phone Pablo Thakur Primary Care Provider + Allergies Active Allergy Reactions Criticality Noted Date Comments Codeine Stomach upset Low 02/12/2021 Gabapentin Mental status changes Low 02/12/2021 Sumatriptan Vomiting Low 02/12/2021 DIZZINESS, HOT AND COLD FLASHES, FEELS LIKE SKIN IS CRAWLING AND BURNING Iodinated Contrast Media Hives Medium 02/12/2021 EDEMA Tramadol Itching Low 02/12/2021 Medications albuterol HFA (PROVENTIL HFA,VENTOLIN HFA,PROAIR HFA) 90 mcg/actuation inhaler Inhale 2 puffs PRN Active Active Problems No known active problems Social History Tobacco Use Types Packs/Day Years Used Date Smoking Tobacco: Never Smokeless Tobacco: Never Personal Safety Answer Date Recorded Getting School Help Needed Not on file 12/05 Comments Unknown Sex and Gender Information Value Date Recorded Sex Assigned at Not on file Legal Sex Female 9:00 PM [employer] WORK[employer] Gender Identity Not on file Sexual Orientation Not on file Last Filed Vital Signs Vital Sign Reading Time Taken Comments Blood Pressure 106/68 04/29/2021 12:21 PM CDT Pulse 71 04/29/2021 12:21 PM CDT Temperature 36.7 C (98.1 F) 04/29/2021 12:21 PM CDT Respiratory Rate - - Oxygen Saturation 99% 06/15/2014 9:32 AM CDT Inhaled Oxygen Concentration - - Weight 74.4 kg (164 lb 2 oz) 04/29/2021 12:21 PM CDT Height 158.8 cm (5' 2.5) 04/29/2021 12:21 PM CD T Body Mass Index 29.54 04/29/2021 12:21 PM CDT Plan of Treatment Not on file Insurance [facility] * Guarantor: Keri Parker Account Type Relation to Patient Date of Phone Billing Address Personal/Family Self [address] [place] [id number] [facility] * Guarantor: Keri Parker Account Type Relation to Patient Date of Phone Billing Address Personal/Family Self [address] [place] [id number] Care Teams Supervisor [employer] Relationship Specialty Start Date End Date Pablo Thakur PA [address] [place] [id number] PCP - General Internal Medicine 08/28/20
--- OUTSIDE RECORDS SUMMARY | 2025-04-16 13:25 | XMS_ITS | Data Portability ---
Author Organization [facility] Address [address] [place] [address] Assessment No assessment recorded. Plan of Treatment Reminders Order Date Submit Date Provider Last Modified By Organization Details Last Modified Time Details Appointments NURSE ONLY 2024 09:00A M Ann Kramer MD Not available Not available Not available NEW PATIENT 30 2024 09:30A M LEE ANN NOGUEIRA Not available Not available Not available Lab cobalam in and folate panel, serum 2024 025 [facility], [address] [place] [address], [address], [place], [address], 04/03/2025 09:58:56 thiamin e, QN, blood 2024 025 [facility], [address] [place] [address], [facility] [address], [place], [address], 04/03/2025 09:58:56 DELLA (antinu clear antibod ies) titer + pattern , ifa, serum 2024 025 [facility], [address] [place] [address], [address], [place], [address], 04/03/2025 09:58:56 Referral neurolo gist referra l - Recurre nt paresth ias. NCS neg x2. Unable to tolerat e gabapen tin. respons e to pregaba deangelo unclear 2024 025 FAWN Finley MD, [address], [place], [address], 03/23/2025 04:24:31 orthope dic surgeon referra l - if pt needs physica l therapy we have it here [place]in [place] 2024 025 [facility], [address], [place], [address], 02/02/2025 15:24:03 Procedures None recorde d. Surgeries None recorde d. Imaging None recorde d. Medication Orders cyanoco balamin (vit B-12) 1,000 mcg/mL injecti on solutio n [address] [facility] [place], [address], 03/24/2025 18:50:32 EpiPen 2-Lopez 0.3 mg/0.3 mL injecti on, auto-in jector 2024 025 [facility], [address] [place], [address], 03/08/2025 17:10:20 cyanoco balamin (vit B-12) 1,000 mcg/mL injecti on solutio n 2024 025 [place] [address] Not available 01/30/2025 18:12:33 hydroco done 5 mg-acet aminoph en 325 mg tablet 2024 025 [facility], [address] [place] [address], [id number], 01/26/2025 16:26:10 cyanoco balamin (vit B-12) 1,000 mcg/mL injecti on solutio n [address] [facility], [address] [place], [address], 12/05/2024 10:07:06 Patient TargetsNo targets recorded. Patient Instructions Encounter Date Encounter Id Patient Instructions Last Modified By Organization Details Last Modified Time 03/08/2025 [id number] neuropathic pain : care instructions [email or web address] Not available 03/08/2025 17:10:14 Reason for Referral Orthopedic Surgeon Referral for Pain of right shoulder region if pt needs physical therapy we have it here in our building [place] Referring Physician: Ann Kramer, Internal Medicine, Encounter Date: 01/25/2025 Neurologist Referral for Judy ropathy Recurrent paresthias. NCS neg x2. Unable to tolerate gabapentin. 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 Not Available [facility] 2 09:25:28 Anti-nuc lear factor detected 207681299 Active 2019 Not Available [facility] 2 09:25:28 Strictur e of esophagu s 08411905 Active 2019 Not Available [facility] 2 09:25:28 Gastriti s 8828223 Active 2019 Not Available [facility] 2 09:25:28 Pain of bilatera l hands 09635446446 045436 Active 2019 Not Available [facility] 2 09:25:28 Pain in both feet 90166308761 241791 Active 2019 Not Available [facility] 2 09:25:28 Plantar fasciiti s of left foot 35437481056 699771 Active 2020 Not Available [facility] 2 09:25:28 Neuropat hy 662752671 Active 2020 bilatera l foot pain .. Ann Kramer MD Attn: Accounting ,[address] [place], [address] , [place] - [facility] 5 16:56:48 Serum vitamin B12 borderli ne low 377354024 Active 2020 Not Available [facility] 2 09:25:28 Failure to lose weight 61792702 Active 2020 Not Available [facility] 2 09:25:28 Acute sinusiti s 97601577 Active 2021 Not Available [facility] 2 09:25:28 Bee sting 459853353 Active 2021 Pablo Thakur PA-C Attn: Accounting ,[address] [facility] [address], [place], [address] , [place] - [facility] 2 13:03:40 HIV screenin g Active 2021 Pablo Thakur PA-C Attn: Accounting ,[address] [facility] [address] [address], [place], [address] , [place] - [facility] 2 15:33:18 History of total hysterec tristin 766414956 Active 2022 LEE ANN ROMANO Attn: Accounting ,[address] [facility] [address] [address], [place], [address] , [place] - [facility] 3 11:55:30 Peptic ulcer 76781856 Active 11 ulcers Not Available [facility] 2 09:25:28 Irritabl e bowel syndrome 87441143 Active Not Available [facility] 2 09:25:28 Pancreat itis 87675315 Active Not Available [facility] 2 09:25:28 Gastroes ophageal reflux disease 575319594 Active Not Available [facility] 2 09:25:28 Asthma 124908513 Active Not Available [facility] 2 09:25:28 Irritabi lity of urinary bladder 507126493 Active Not Available [facility] 2 09:25:28 Allergic reaction to bee sting 453856303 Active Not Available [facility] 2 09:25:28 Pneumoni a 426459710 Active Not Available [facility] 2 09:25:28 Anxiety disorder 489965726 Active 2023 Ann Kramer MD Attn: Accounting ,[address] [facility] [address], [place], [address] , [place] - [facility] 4 15:22:10 Family history of Thyroid disorder 180052732 Active 2023 Ann Kramer MD Attn: Accounting ,[address] [facility] [address] [address], [place], [address] , [place] - [facility] 4 15:58:05 Fatigue 99511140 Active 2023 Ann Kramer MD Attn: Accounting ,[address] [facility] [address] [address], [place], [address] , [place] - [facility] 4 16:00:21 Disorder of vitamin B12 896897305 Active 2023 Ann Kramer MD Attn: Accounting ,[address] [facility] [address], [place], [address] , [place] - [facility] 4 16:01:53 Cough 90809869 Active 2024 Ann Kramer MD Attn: Accounting ,[address] [facility] [address] [address], [place], [address] , [place] - [facility] 5 17:52:18 Pain of right shoulder region Active 2024 Ann Kramer MD Attn: Accounting ,[address] [facility] [address] [address], [place], [address] , [place] - [facility] 5 16:01:11 Vitamin D deficien cy 04839834 Active Not Available [facility] 2 09:25:28 Sinusiti s 93400381 Active Not Available [facility] 2 09:25:28 Insomnia 463968907 Active Not Available [facility] 2 09:25:28 Normal grief reaction 461215662 Active 2016 Not Available [facility] 2 09:25:28 Posttrau matic stress disorder 28216279 Active 2016 Not Available [facility] 2 09:25:28 Crohn's disease 40765082 Completed 201603/15/2024 Ann Kramer MD Attn: Accounting ,[address] [facility], [place], [address] , [place] - [facility] 4 15:25:01 Hyperlip idemia screenin g Active 2016 Not Available [facility] 2 09:25:28 Notes:Duplicate AQ23 Gene--- ----Shingles 2014 Problem Notes None recorded. Procedures Surgical History Date Name Laterality Status Provider Name and Address Organization Details Recorded Time 05/02/20 20 biopsy completed Leana Ku MA [place] [facility] 05/10/2020 16:33:49 05/02/20 20 dilation of esophagus completed Leana Ku MA [place] [facility] 05/10/2020 16:34:25 05/30/20 19 Total hysterectomy completed LEE ANN ROMANO Attn: Accounting,[address] [facility], [place], [address], [place] [facility] 07/29/2023 11:55:15 04/15/20 18 laser uterosacral nerve ablation completed Leana Ku [place] [facility] 01/21/2019 17:29:04 laparoscopic hysterectomy completed DEYVI KIRK NP [address] [place], [address], [facility] - [facility] 07/07/2019 15:44:13 Removal of fallopian tube completed DEYVI KIRK NP [address] [place], [address], [facility] - [facility] 07/07/2019 15:44:55 cholecystopexy completed Neeraj Forte DO [address] [place], [address], [place] - [facility] 07/27/2019 17:37:00 Tubal Ligation completed DEVON Montejo - [facility] 12/14/2014 16:13:12 LEEP completed Adela Iglesias MA [place] - [facility] 12/14/2014 16:13:12 Imaging Results None recorded. Procedure Notes None recorded. Medical Equipment None Reported. Allergies Allergen ID Allergen Name Allergen Category Reaction Reaction Severity Criticality Documentation Date Start Date Code Code System Note Provider Name and Address Organization Details Recorded Time 189668 doxycycli ne Not available other Not available Not available 03/30/2019 3640 RxNorm Rapid Heart beat Sushma Hicks MA null, [place] - [facility] 9 09:24:08 667233 Iodinated contrast media (substanc e) medicatio n Not available Not available Not available 02/01/2020 23465 2004 SNOMED Maria C Ho LPN [place], [place] [facility] 0 10:55:41 877995 Pennsaid medicatio n itching severe Not available 08/20/20202019 80972 1 RxNorm Pablo Thakur PA-C Attn: Jasmin meade,[address] [place], [address], [place] [facility] 0 17:12:31 074693 honey bee venom medicatio n other moderate high 03/25/2022 43881 7 RxNorm Leana Ku [place], [place] [facility] 2 15:46:38 828696 codeine medicatio n other moderate low 03/25/2022 2670 RxNorm Leana Ku [place] [facility] 2 15:47:24 690939 fentanyl medicatio n other severe high 03/25/2022 4337 RxNorm Leana Ku [place] [facility] 2 15:48:30 628294 gabapenti n medicatio n confusion Not available Not available 03/08/2025 01086 RxNorm Ann Kramer MD Attn: Jasmin meade,[address] [place], [address], [place] [facility] 5 16:47:45 99677 Abilify medicatio n Not available Not available Not available 12/14/2014 38932 3 RxNorm Adela Iglesias [place], [place] [facility] 5 16:13:12 18745 altretami ne medicatio n Not available Not available Not available 12/14/2014 5296 RxNorm Adela Iglesias [place], [place] [facility] 5 16:13:12 Medications Name Sig Start Date Stop Date Status Note LastModified by Organization Details LastModified Time Prescript ion - Renewal 07/10 completed Not Available Not Available Not Available multivita min tablet Take 1 tablet every day by oral route. 2023 active Not Available Not Available Not Avai lable cyclobenz aprine 10 mg tablet TAKE 1 TABLET BY MOUTH ONCE DAILY AT BEDTIME FOR 30 DAYS 01/28 completed Not Available Not Available Not Available amoxicill in 500 mg capsule TAKE 1 CAPSULE BY MOUTH THREE TIMES DAILY UNTIL GONE 06/08 completed Not Available Not Available Not Available promethaz ine-DM 6.25 mg-15 mg/5 mL oral syrup TAKE 5 ML BY MOUTH EVERY 4 HOURS FOR 10 DAYS 09/30 completed Not Available Not Available Not Available prednison e 10 mg tablet TAKE 1 TABLET BY MOUTH TWICE DAILY FOR 10 DAYS active Not Available Not Available No t Available venlafaxi ne ER 75 mg capsule,e xtended release 24 hr Take 1 capsule every day by oral route at bedtime for 30 days. 09/13 completed Not Available Not Available Not Available sulfasala zine 500 mg tablet 07/10 completed Not Available Not Available Not Available clindamyc in HCl 300 mg capsule TAKE 1 CAPSULE BY MOUTH EVERY 8 HOURS FOR 10 DAYS 09/29 completed Not Available Not Available Not Available cetirizin e 10 mg tablet Take 1 tablet every day by oral route for 30 days. 01/28 completed Not Available Not Available Not Available azithromy mica 250 mg tablet TAKE 2 TABLETS BY MOUTH ON DAY 1 AND THEN TAKE 1 TABLET BY MOUTH ONCE A DAY ON DAY 2 THROUGH DAY 5 02/15 completed Not Available Not Available Not Available lidocaine 5 % topical cream APPLY CREAM TO BOTTOM OF FEET TWICE DAILY FOR 30 DAYS 01/28 completed Not Available Not Available Not Available ibuprofen 800 mg tablet TAKE 1 TABLET BY MOUTH EVERY 8 HOURS NEEDED FOR PAIN active Not Available Not Available No t Available fluconazo le 150 mg tablet TAKE 1 TABLET BY MOUTH THREE TIMES A WEEK FOR 7 DAYS NEEDED ONLY FOR YEAST VAGINITI S FROM ANTIBIOT ICS. 01/28 completed Not Available Not Available Not Available ranitidin e 300 mg tablet 07/10 completed Not Available Not Available Not Available hydrocodo ne 5 mg-acetam inophen 325 mg tablet TAKE ONE TABLET BY MOUTH THREE TIMES A DAY, MORNING, MIDDAY AND BEDTIME FOR PAIN active Not Available Not Available No t Available meloxicam 15 mg tablet TAKE 1 TABLET BY MOUTH ONCE DAILY NEEDED FOR 30 DAYS 01/28 completed Not Available Not Available Not Available sucralfat e 1 gram tablet TAKE 1 TABLET BY MOUTH 4 TIMES DAILY active Not Available Not Available No t Available promethaz ine 12.5 mg tablet 07/10 completed Not Available Not Available Not Available metronida zole 0.75 % (37.5 mg/5 gram) vaginal gel INSERT 1 APPLICAT ORFUL VAGINALL Y AT BEDTIME FOR 5 DAYS 01/28 completed Not Available Not Available Not Available ondansetr on HCl 4 mg tablet Take 1 tablet twice a day by oral route as needed for 30 days. 01/28 completed Not Available Not Available Not Available prednison e 20 mg tablet TAKE 1 TABLET BY MOUTH ONCE DAILY FOR 5 DAYS 01/28 completed Not Available Not Available Not Available moxifloxa mica 400 mg tablet TAKE 1 TABLET BY MOUTH ONCE DAILY 05/28 completed Not Available Not Available Not Available permethri n 5 % topical cream 12/13 completed Not Available Not Available Not Available cyanocoba wilmar (vit B-12) 1,000 mcg tablet Take 1 tablet twice a day by oral route with meals for 30 days. 01/28 completed Not Available Not Available Not Available diphenoxy late-atro pine 2.5 mg-0.025 mg tablet 09/13 completed Not Available Not Available Not Available metronida zole 500 mg tablet TAKE 1 TABLET BY MOUTH TWICE DAILY (TO TAKE THIS MEDICATI ON AFTER FINISHIN G MOXIFLOX ACIN) 05/28 completed Not Available Not Available Not Available acetamino phen 300 mg-codein e 30 mg tablet 07/10 completed Not Available Not Available Not Available dextromet horphan-g uaifenesi n 10 mg-100 mg/5 mL oral syrup Take 10 mL 4 times a day by oral route. 2024 active Not Available Not Available Not Avai lable acyclovir 400 mg tablet 07/10 completed Not Available Not Available Not Available ciproflox acin 500 mg tablet Take 1 tablet every 12 hours by oral route. 07/07 completed Not Available Not Available Not Available omeprazol e 40 mg capsule,d elayed release TAKE 1 CAPSULE BY MOUTH ONCE DAILY FOR 30 DAYS active Not Available Not Available No t Available doxycycli ne monohydra te 100 mg tablet take 1 tablet with food twice daily. 01/21 completed Not Available Not Available Not Available triamcino lone acetonide 0.1 % topical cream APPLY CREAM TOPICALL Y TWICE DAILY FOR 7 DAYS active Not Available Not Available No t Available spironola ctone 25 mg tablet take 1/2 tablet twice daily 12/13 completed Not Available Not Available Not Available amoxicill in 500 mg tablet Take 2 tablets every 12 hours by oral route for 10 days. 07/10 completed Not Available Not Available Not Available oxycodone -acetamin ophen 5 mg-325 mg tablet active Not Available Not Available Not Available alprazola m 0.5 mg tablet 07/10 completed Not Available Not Available Not Available citalopra m 20 mg tablet Take 1 tablet every day by oral route in the evening for 30 days. 08/20 completed Not Available Not Available Not Available famotidin e 20 mg tablet Take 1 tablet twice a day by oral route for 30 days. 01/28 completed Not Available Not Available Not Available amitripty line 25 mg tablet TAKE 1 TABLET BY MOUTH AT BEDTIME 05/28 completed Not Available Not Available Not Available clindamyc in 1 % topical gel APPLY A THIN LAYER TOPICALL Y TO AFFECTED AREA TWICE DAILY 01/21 completed Not Available Not Available Not Available ropinirol e 0.25 mg tablet TAKE 1 TABLET BY MOUTH AT BEDTIME FOR 5 DAYS THEN TAKE 2 TABLETS BY MOUTH AT BEDTIME FOR 5 DAYS THEN TAKE 3 TABLETS AT BEDTIME TO MAINTAIN 11/15 completed head hurts Not Available Not Available Not Available dicyclomi ne 20 mg tablet TAKE 1 TABLET BY MOUTH THREE TIMES DAILY NEEDED FOR ABDOMINA L PAIN active Not Available Not Available No t Available benzoyl peroxide 10 % topical gel apply to face and upper body every night at bedtime. 12/13 completed Not Available Not Available Not Available doxycycli ne monohydra te 100 mg capsule 12/13 completed Not Available Not Available Not Available hydrocodo ne 7.5 mg-acetam inophen 325 mg tablet Take 1 tablet twice a day by oral route for 30 days. 09/13 completed Not Available Not Available Not Available pantopraz ole 40 mg tablet,de layed release Take 1 tablet every day by oral route before meal(s). active Not Available Not Available No t Available diphenhyd ramine 25 mg capsule Take 1 capsule 3 times a day by oral route as needed for 30 days. active Not Available Not Available No t Available cyanocoba wilmar (vit B-12) 1,000 mcg/mL injection solution Inject 1 mL every month by subcutan eous route. 2024 active Not Available Not Available Not Avai lable esomepraz ole magnesium 40 mg capsule,d elayed release TAKE 1 CAPSULE BY MOUTH ONCE DAILY 07/13 completed Not Available Not Available Not Available ranitidin e 150 mg tablet 07/10 completed Not Available Not Available Not Available Gentle Laxative (bisacody l) 5 mg tablet,de layed release TAKE ALL 4 TABLETS OF DULCOLAX BY MOUTH AT ONE TIME WITH 8 OUNCES OF WATER AT 2 PM THE DAY BEFORE THE COLONOSC OPY 03/15 completed Not Available Not Available Not Available lansopraz ole 30 mg capsule,d elayed release 03/15 completed Not Available Not Available Not Available prednison e 50 mg tablet TAKE 1 TABLET BY MOUTH ONCE DAILY active Not Available Not Available No t Available lidocaine 5 % topical patch APPLY 1 PATCH BY TOPICAL ROUTE ONCE DAILY (MAY WEAR UP TO 12HOURS. ) 01/28 completed Not Available Not Available Not Available carbamaze pine 100 mg chewable tablet 01/28 completed Not Available Not Available Not Available omeprazol e 20 mg capsule,d elayed release Take 1 capsule every day by oral route. 01/31 completed Not Available Not Available Not Available cyanocoba wilmar (vit B-12) 1,000 mcg sublingua l tablet Place 1 tablet twice a day by sublingu al route for 30 days. 03/25 completed Not Available Not Available Not Available ranitidin e 150 mg capsule Take 1 capsule twice a day by oral route. 07/10 completed Not Available Not Available Not Available alprazola m 2 mg tablet 07/10 completed Not Available Not Available Not Available ergocalci ferol (vitamin D2) 1,250 mcg (50,000 unit) capsule TAKE 1 CAPSULE BY MOUTH ONCE A WEEK active Not Available Not Available No t Available lorazepam 1 mg tablet TAKE 1 TABLET BY MOUTH 30 MINUTES BEFORE PROCEDUR E active Not Available Not Available No t Available epinephri ne 0.3 mg/0.3 mL injection , auto-inje ctor INJECT CONTENTS OF 1 PEN NEEDED FOR ALLERGIC REACTION active Not Available Not Available No t Available oxycodone -acetamin ophen 7.5 mg-325 mg tablet 07/10 completed Not Available Not Available Not Available methylpre dnisolone 4 mg tablets in a dose pack TAKE BY MOUTH DIRECTED ON INSIDE OF PACKAGE 06/08 completed Not Available Not Available Not Available albuterol sulfate HFA 90 mcg/actua tion aerosol inhaler INHALE 2 PUFFS BY MOUTH 4 TIMES DAILY NEEDED FOR SHORTNES S OF BREATH FOR WHEEZING active Not Available Not Available No t Available ondansetr on 4 mg disintegr ating tablet TAKE ONE TABLET BY MOUTH THREE TIMES DAILY NEEDED FOR 30 DAYS 09/13 completed Not Available Not Available Not Available fluticaso ne propionat e 50 mcg/actua tion nasal spray,viktoriya pension 12/13 completed Not Available Not Available Not Available dicyclomi ne 10 mg capsule Take 1 capsule twice a day by oral route as needed for 30 days. 01/28 completed Not Available Not Available Not Available amoxicill in 875 mg-potass ium clavulana te 125 mg tablet TAKE 1 TABLET BY MOUTH EVERY 12 HOURS FOR 7 DAYS active Not Available Not Available No t Available clindamyc in phosphate 1 % topical solution apply to face every night at bedtime. 03/30 completed Not Available Not Available Not Available erythromy mica with ethanol 2 % topical gel apply to face and upper body at bedtime 12/13 completed Not Available Not Available Not Available azithromy mica 500 mg tablet TAKE 1 TABLET BY MOUTH THREE TIMES A WEEK, THEN START 250MG 04/04 completed Not Available Not Available Not Available duloxetin e 30 mg capsule,d elayed release Take 1 capsule every day by oral route in the evening for 7 days. 01/28 completed Not Available Not Available Not Available duloxetin e 60 mg capsule,d elayed release Take 1 capsule every day by oral route in the evening for 30 days. 01/28 completed Not Available Not Available Not Available Prevalite 4 gram oral powder MIX 1 SCOOP DIRECTED AND TAKE BY MOUTH EVERY DAY IN THE MORNING active Not Available Not Available No t Available pregabali n 50 mg capsule Take 1 capsule twice a day by oral route. active Not Available Not Available No t Available Lyrica 150 mg capsule Take 1 capsule twice a day by oral route for 30 days. 09/20 completed sqeezing head feeling Not Available Not Available Not Available oxycodone 5-325 mg 1 tab po every 4 hrs PRN for pain (severe scale 8-10) active Not Available Not Available No t Available omeprazol e 01/21 completed Not Available Not Available Not Available ondansetr on 12/13 completed Not Available Not Available Not Available Symbicort 160 mcg-4.5 mcg/actua tion HFA aerosol inhaler INHALE 2 PUFFS BY MOUTH TWICE DAILY active Not Available Not Available No t Available ClearLax 17 gram/dose oral powder IN A PITCHER, MIX ENTIRE BOTTLE OF MIRALAX IN A 64 OZ. BOTTLE OF YELLOW OR GREEN GATORADE . BEGINNIN G AT 5PM THE EVENING BEFORE THE COLONOSC OPY, DRINK ONE 8 OZ. GLASS EVERY 15 MINUTES UNTIL COMPLETE D. DRINK 4 GLASSES OF WATER AFTER FINISHIN G MIXTURE. 03/15 completed Not Available Not Available Not Available Vitamin D3 50 mcg (2,000 unit) capsule Take 1 capsule every day by oral route with meals for 30 days. 01/28 completed Not Available Not Available Not Available Pennsaid 20 mg/gram/a ctuation (2 %) topical soln in metered-d ose pump APPLY 2 PUMPS (40 MG) TO THE AFFECTED KNEE(S) BY TOPICAL ROUTE 2 TIMES PER DAY 07/20 completed irritate s skin Not Available Not Available Not Available ID NOW COVID-19 Test Kit TEST DIRECTED TODAY 03/25 completed Not Available Not Available Not Available COVID-19 test specimen collectio n TEST DIRECTED TODAY 03/25 completed Not Available Not Available Not Available Vitals Date Recorded Body height Body mass index (BMI) Body weight Heart rate Oxygen saturation Oxygen saturation in Arterial blood by Pulse oximetry Systolic And Diastolic Provider Name and Address Organization Details Last Updated DateTime 5 158.75 cm 32.2 kg/m2 57765.0 3 g 77 /min 98 % 98 % 107/69 mm[Hg] Perry Thakur MA [facility] 5 15:36:35 Date Recorded Body height Provider Name an Address Organization Details Last Updated DateTime 01/30/2025 158.75 cm Josefina Rojas MA [facility] 025 16:03:46 Date Recorded Body height Body mass index (BMI) Body weight Heart rate Oxygen saturation Oxygen saturation in Arterial blood by Pulse oximetry Systolic And Diastolic Provider Name and Address Organization Details Last Updated DateTime 5 158.75 cm 32.4 kg/m2 20082.6 3 g 65 /min 99 % 99 % 93/67 mm[Hg] Perry Thakur MA [facility] 5 16:35:43 Social History Question Answer Notes LastModified by Organizat ion Details LastModified Time Tobacco Smoking Status Never Smoker Adela Iglesias MA [facility] 12/14/2014 16:13:12 Do You Have An Advance Directive? No Information not available 08/19/2021 Are You Blind Or Do You Have Difficulty Seeing? No Information not available 01/14/2021 What Is Your Level Of Caffeine Consumption? None Information not available 12/14/2014 How Much Tobacco Do You Chew? None Information not available 12/14/2014 Are You Deaf Or Do You Have Serious Difficulty Hearing? No Information not available 01/14/2021 What Type Of Diet Are You Following? REGULAR Information not available 01/14/2021 Are There Any Guns Present In Your Home? No Information not available 01/14/2021 Marital Status Informatio n not available 12/14/2014 Do You Have A Medical Power Of [place]ascara Bark Cutter? No [email or web address] Information not available 05/28/2023 What Was The Date Of Your Most Recent Tobacco Screening? 03/08/2025 Information not available 03/08/2025 How Many Children Do You Have? 3 Information not available 08/19/2021 What Is Your Relationship Status? Information not available 01/14/2021 Do You Use Your Seat Belt Or Car Seat Routinely? Yes Information not available 01/14/2021 Do You Have Smoke And Carbon Monoxide Detectors In Your Home? Yes Information not available 01/14/2021 Are You Passively Exposed To Smoke? No Information no t available 01/14/2021 How Much Tobacco Do You Smoke? No Information not available 12/14/2014 Do You Use Sunscreen Routinely? No Information not available 01/14/2021 Has Tobacco Cessation Counseling Been Provided? No Information not available 08/19/2021 On What Date Was Tobacco Cessation Counseling Provided? 03/08/2025 Information not available 03/08/2025 Sex: Female Functional Status Question Answer Note LastModified by Organizat ion Details LastModified Time Do you use any illicit or recreational drugs? No Information not available 01/14/2021 Do you or have you ever used any other forms of tobacco or nicotine? No [email or web address] Information not available 01/28/2023 What is your level of alcohol consumption? None Information not available 12/14/2014 Do you or have you ever used smokeless tobacco? Never used smokeless tobacco [email or web address] Information not available 05/21/2020 Are you currently employed? Yes Information not available 08/19/2021 Are you able to care for yourself? Yes Information not available 01/14/2021 What is your occupation? [email or web address] Information not available 01/31/2020 Do you or have you ever used e-cigarettes or vape? Never used electronic cigarettes [facility] Information not available 05/21/2020 What is your exercise level? Heavy Information not available 01/14/2021 Mental Status Question Answer Note LastModified by Organization D etails LastModified Time Do you feel stressed (tense, restless, nervous, or anxious, or unable to sleep at night)? [id number] [email or web address] Information not available 01/14/2021 Family History Relationship Description Onset Age of this Age Resolved Age Notes LastModified by Organization Details LastModified Time Mother Hypertensive disorder Not available 2014 14:21:10 Mother Hypercholest erolemia Not available 2014 14:21:10 Mother Heart disease Not available 2014 14:21:10 Mother Disorder of thyroid gland Not available 2014 14:21:10 Mother Diabetes mellitus Not available 2014 14:21:10 Mother Depressive disorder Not available 2014 14:21:10 Mother Blood coagulation disorder Not available 2014 14:21:10 Mother Asthma Not available 03/29/2015 14:21:10 Mother Harmful pattern of use of alcohol Not available 2014 14:21:10 Sister Harmful pattern of use of alcohol Not available 2014 14:21:10 Sister Blood coagulation disorder Not available 2014 14:21:10 Sister Depressive disorder Not available 2014 14:21:10 Sister Disorder of thyroid gland Not available 2014 14:21:10 Sister Hypertensive disorder Not available 2014 14:21:10 Brother Harmful pattern of use of alcohol Not available 2014 14:21:10 Brother Attention deficit hyperactivit y disorder Not available 03/29 14:21:10 Brother Depressive disorder Not available 2014 14:21:10 Son Autoimmune disease Vitili go, alopec ia [email or web address] Not available 02/01/2020 12:15:20 Medical History Condition Response Acid Reflux (GERD) Y Asthma Y GI Problems Y Gynecological HistoryNo gynecological history recorded. Obstetrics History GPAL:G 3 P 3 0 0 3 Type Value Full Term 3 Living 3 Total 3 Past Encounters Encounter ID Performer Location Encounter Start Date Encounter Closed Date Diagnosis/Indication Diagnosis SNOMED-CT Code Diagnosis ICD10 Code Diagnosis Note [id number] [facility] [address] [place] [address] 11703-255 0 12/14/2014 15:44:04 12/15/2014 11:44:54 Allergic reaction to bee sting 651853382 Pneumonia 072986984 Asthma 540510779 Irritabili ty of urinary bladder 873085041 Gastroesop hageal reflux disease 609761850 Irritable bowel syndrome 96633833 Pancreatitis 14098644 Peptic ulcer 41930626 [id number] MD [facility] (Adult Med) [address] [place] [address] [id number] 0 03/29/2015 13:36:53 03/29/2015 14:48:35 Adult health examination 943041471 Pancreatitis 74171885 Peptic ulcer 05056181 Irritable bowel syndrome 12214890 Gastroesop hageal reflux disease 153857378 Asthma 236531594 Vitamin D deficiency 35536904 [id number] MD [facility]ina [facility] (Adult Med) [address] [place] [address] 60648-680 0 07/31/2015 10:53:27 07/31/2015 17:55:24 Sinusitis 14610204 J32.9 Asthma 596084223 J45.90 9 Allergic r eaction to bee sting 687712570 T63.444D Gastroesop hageal reflux disease 840649523 K21.9 Irritable bowel syndrome 36661907 K58.9 Pancreatitis 58719740 K8 5.9 Peptic ulcer 44694802 K2 7.9 Vitamin D deficiency 347 23330 E55.9 Insomnia 761954187 G47.0 0 [id number] [facility] (Adult Med) [address] [place] [address] 31924-911 0 12/04/2015 11:35:43 12/04/2015 12:09:50 Pancreatitis 99175873 K85.9 Irritable bowel syndrome 19391218 K58.9 Vitamin D deficiency 347 27106 E55.9 Peptic ulcer 65805107 K2 7.9 Asthma 820763972 J45.90 9 Gastroesop hageal reflux disease 934907498 K21.9 [id number] Nieves Otero MD [facility] (Adult Med) [address] [place] [address] 28298-899 0 07/10/2017 12:04:21 07/13/2017 11:38:05 Sinusitis 23914072 J32.9 Normal grief reaction 27 2274287 F43.20 Posttrauma tic stress disorder 68932841 F43.10 saw her mother suffering and dying .....has nightmares Insomnia 335332062 G47.0 0 Gastroesop hageal reflux disease 247378245 K21.9 Vitamin D deficiency 347 65289 E55.9 Asthma 864109503 J45.90 9 Crohn's disease 83496082 K50.90 Hyperlipid emia screening 147611687 Z13.398 [id number] Nieves Otero MD [facility] (Adult Med) [address] [place] [address] 78439-295 0 08/20/2017 10:52:25 08/20/2017 11:37:36 Normal grief reaction 922835348 F43.20 Asthma 154307959 J45.90 9 Gastroesop hageal reflux disease 954795182 K21.9 Vitamin D deficiency 347 46188 E55.9 Pancreatitis 72171697 K8 5.90 Crohn's disease 75738630 K50.90 Insomnia 252793517 G47.0 0 [id number] Nieves Otero MD [facility] (Adult Med) [address] [place] [address] 55288-489 0 09/13/2018 16:34:16 09/13/2018 18:27:46 Acne 09159355 L70.9 Crohn's disease 00372650 K50.90 Posttrauma tic stress disorder 34267369 F43.10 saw her mother suffering and dying .....has nightmares Irritable bowel syndrome 40792573 K58.9 Vitamin D deficiency 347 37697 E55.9 Gastroesop hageal reflux disease 584553046 K21.9 Asthma 645722869 J45.90 9 Insomnia 669779420 G47.0 0 [id number] Nieves Otero MD [facility] (Adult Med) [address] [place] [address] [id number] 0 10/11/2018 17:04:27 10/12/2018 12:14:51 Acne 09301836 L70.9 Crohn's disease 70803521 K50.90 Posttrauma tic stress disorder 25480654 F43.10 saw her mother suffering and dying .....has nightmares Irritable bowel syndrome 12593295 K58.9 Peptic ulcer 03754444 K2 7.9 Insomnia 643649471 G47.0 0 Asthma 178337280 J45.90 9 Gastroesop hageal reflux disease 399324975 K21.9 [id number] Adan Faith MD [facility] ([id number]) [address] [place] [address] 12/29/2018 11:15:39 12/29/2018 13:52:39 Acne vulgaris 73008562 L70.0 Epidermoid cyst 64005628 6 L72.0 [id number] Nieves Otero MD [facility] (Adult Med) [address] [place] [address] [id number] 0 01/21/2019 17:02:58 01/24/2019 10:07:01 Allergic reaction to bee sting 728371958 T63.444D Crohn's disease 79748720 K50.90 Peptic ulcer 74601158 K2 7.9 Acne 97237244 L70.9 Posttrauma tic stress disorder 96150293 F43.10 saw her mother suffering and dying .....has nightmares Irritable bowel syndrome 30277256 K58.9 Insomnia 398577748 G47.0 0 Gastroesop hageal reflux disease 571502105 K21.9 Vitamin D deficiency 347 73013 E55.9 [id number] Adan Faith MD [facility] ([id number]) [address] [place] [address] 03/30/2019 09:16:35 03/30/2019 13:23:32 Acne vulgaris 49880728 L70.0 [id number] Neeraj Forte DO [facility] [address] [place] [address] 07/07/2019 13:56:58 07/26/2019 10:30:46 Crohn's disease 26488757 K50.[address] Forte on 07/27/19 History of pancreatitis 5589805975 9107 Z87.19 Having RUQ abdominal pain that she characteri zes as pancreati cHistory of Ampullary stenosis S/P stent with stent removal Gastroesop hageal reflux disease 068883674 K21.9 Nausea 638259995 R11.0 [id number] Neeraj Forte DO [facility] [address] [place] [address] 07/27/2019 16:47:08 07/28/2019 09:18:38 Irritable bowel syndrome 65907566 K58.9 May be the main problem Peptic ulcer 92161185 K2 7.9 Asthma 674388170 J45.90 9 Gastroesop hageal reflux disease 731970451 K21.9 Crohn's disease 52459642 K50.90 Suspected Vitamin D deficiency 347 29737 E55.9 Posttrauma tic stress disorder 59585228 F43.10 Pancreatitis 57676871 K8 5.90 Diarrhea 96431226 R19.7 Abdominal pain 62941613 R10.9 [id number] Neeraj Forte DO [facility] [address] [place] [address] 12/14/2019 15:20:10 12/20/2019 17:13:28 Gastroesophageal reflux disease 184652807 K21.9 Irritable bowel syndrome 32300917 K58.9 May be the main problem Chronic pancreatitis 235 392287 K86.1 Posttrauma tic stress disorder 73076541 F43.10 Liver enzy mes level above reference range 405397122 R74.8 Increased liver function 86196586 R94.5 [id number] MD Jori Haddad [address] [place] [address] 01/31/2020 10:19:29 02/01/2020 07:35:24 Cough 16543843 R05 [id number] [facility] [address] [place] [address] 02/01/2020 07:39:11 02/23/2020 17:14:01 Gastroesophageal reflux disease 819475880 K21.9 Continue omeprazole 40 mg BID, will consider dose reduction next month Irritable bowel syndrome 90135687 K58.9 Declines loperimide , wants to take dicyclomin e 10 mg BID as this has relieved the cramping with BM in the past. Peptic ulcer 65331739 K2 7.9 History of bleeding ulcersSer um gastrin test not done at [place] as ordered. Will reorder today Anti-nucle ar factor detected 530114812 R76.8 To see ZULEIMA QUINTERO negativeSo n with autoimmun e deficiency : alopecia and vitiligo [id number] [facility] [address] [place] [address] 04/04/2020 15:56:24 04/19/2020 13:06:12 Gastroesophageal reflux disease 492029887 K21.9 Continue omeprazole 40 mg BIDWill consider carafate after EGD Esophageal dysphagia 408 69339 R13.19 Nausea 102968740 R11.0 Irritable bowel syndrome 43040351 K58.9 IBS symptoms controlled with dicyclomin eContinue Dicyclomin e 10 mg BID as this has relieved the cramping with BM in the past. Anti-nucle ar factor detected 720331507 R76.8 To see ZULEIMA QUINTERO negativeSo n with autoimmun e deficiency : alopecia and vitiligo [id number] Nieves Otero MD [facility] (Adult Med) [address] [place] [address] 32[address] 0 05/10/2020 16:24:15 05/10/2020 17:07:48 Anti-nuclear factor detected 745220672 R76.8 Gastroesop hageal reflux disease 791826001 K21.9 Insomnia 265866801 G47.0 0 Irritable bowel syndrome 18399453 K58.9 Vitamin D deficiency 347 68410 E55.9 [id number] DEYVI KIRK NP [facility] [address] [place] [address] 05/21/2020 14:56:52 05/23/2020 11:54:53 Stricture of esophagus 53611574 K22.2 S/P dilation on 05/02/2020 Gastritis 2699521 K29.70 Decrease omeprazole to 40 mg dailyAdd famotidine 20 mg BID Test resul t to patient personally 164516639 Z71.2 EGD [id number] Nieves Otero MD [facility] (Adult Med) [address] [place] [address] 20878-344 0 06/18/2020 08:13:13 06/18/2020 17:50:45 Vitamin D deficiency 56335006 E55.9 Pain of bi lateral hands 4699248750 6738273 M79.641 M79.642 Asthma 279386199 J45.90 9 Crohn's disease 01811380 K50.90 Gastroesop hageal reflux disease 022636634 K21.9 Insomnia 073803268 G47.0 0 Peptic ulcer 19527479 K2 7.9 Posttrauma tic stress disorder 95485746 F43.10 saw her mother suffering and dying .....has nightmares Stricture of esophagus 31167353 K22.2 [id number] Nieves Otero MD [facility] (Adult Med) [address] [place] [address] 44753-675 0 07/20/2020 07:51:48 07/23/2020 09:13:48 Pain of bilateral hands 1642469109 6006160 M79.641 M79.642 Anti-nucle ar factor detected 195623518 R76.8 Asthma 838806045 J45.90 9 Crohn's disease 61098612 K50.90 Insomnia 385097954 G47.0 0 Irritable bowel syndrome 66561653 K58.9 Peptic ulcer 97529106 K2 7.9 Vitamin D deficiency 347 28886 E55.9 Stricture of esophagus 23246594 K22.2 [id number] Nieves Otero MD [facility] (Adult Med) [address] [place] [address] 69574-637 0 08/20/2020 08:28:20 08/20/2020 17:19:18 Pain in both feet 7421428689 1592304 M79.671 M79.672 Pain of bi lateral hands 4652606663 0870330 M79.641 M79.642 Asthma 279096778 J45.90 9 Crohn's disease 70645394 K50.90 Gastroesop hageal reflux disease 014196818 K21.9 Insomnia 373586454 G47.0 0 Irritable bowel syndrome 51103971 K58.9 Peptic ulcer 64456263 K2 7.9 Posttrauma tic stress disorder 41730804 F43.10 saw her mother suffering and dying .....has nightmares Vitamin D deficiency 347 40669 E55.9 [id number] Nieves Otero MD [facility] (Adult Med) [address] [place] [address] 00714-303 0 09/20/2020 08:21:11 09/21/2020 12:35:39 Pain in both feet 6542867020 2024035 M79.671 M79.672 Vitamin D deficiency 347 87646 E55.9 Anti-nucle ar factor detected 779867801 R76.8 Pain of bi lateral hands 5527720142 7453468 M79.641 M79.642 Asthma 671647356 J45.90 9 Crohn's disease 19054971 K50.90 Gastroesop hageal reflux disease 009204363 K21.9 Insomnia 215277647 G47.0 0 Irritable bowel syndrome 62102202 K58.9 Posttrauma tic stress disorder 85064619 F43.10 saw her mother suffering and dying .....has nightmares Stricture of esophagus 64863224 K22.2 [id number] Nieves Otero MD [facility] (Adult Med) [address] [place] [address] 23458-400 0 10/18/2020 09:46:08 10/19/2020 10:25:41 Posttraumatic stress disorder 62384196 F43.10 saw her mother suffering and dying .....has nightmares Pain in both feet 227140 3070 7491734 M79.671 M79.317 [id number] Nieves Otero MD [facility] (Adult Med) [address] [place] [address] 36734-936 0 11/15/2020 08:55:11 11/15/2020 16:45:07 Pain in both feet 5962719296 7014714 M79.671 M79.672 Anti-nucle ar factor detected 452563141 R76.8 Asthma 245823396 J45.90 9 Crohn's disease 04704769 K50.90 Gastroesop hageal reflux disease 291734788 K21.9 Insomnia 915866463 G47.0 0 Posttrauma tic stress disorder 16982426 F43.10 saw her mother suffering and dying .....has nightmares Stricture of esophagus 83904975 K22.2 Vitamin D deficiency 347 84245 E55.9 [id number] [facility] [address] [place] [address] 0 12/13/2020 08:20:06 12/13/2020 16:42:13 Pain in both feet 6922755961 4451750 M79.671 M79.672 Asthma 142074268 J45.90 9 Gastroesop hageal reflux disease 919098840 K21.9 Insomnia 610284277 G47.0 0 Vitamin D deficiency 347 73892 E55.9 Posttrauma tic stress disorder 69312925 F43.10 saw her mother suffering and dying .....has nightmares Plantar fa sciitis of left foot 7500549330 7169155 M72.2 [id number] Nieves Otero MD [facility] (Adult Med) [address] [place] [address] 0 01/14/2021 08:18:33 01/15/2021 10:05:12 Asthma 615884027 J45.909 Crohn's disease 65980068 K50.90 Gastroesop hageal reflux disease 247013222 K21.9 Insomnia 452550744 G47.0 0 Pain in both feet 087303 5078 1947687 M79.671 M79.672 Pain of bi lateral hands 5142452113 3805562 M79.641 M79.642 Posttrauma tic stress disorder 54098899 F43.10 saw her mother suffering and dying .....has nightmares Vitamin D deficiency 347 19359 E55.9 Stricture of esophagus 49703418 K22.2 [id number] MD [facility] (Adult Med) [address] [place], [place] [address] 02/15/2021 15:09:40 02/18/2021 19:06:06 Asthma 299106504 J45.909 Crohn's disease 90605471 K50.90 Gastroesop hageal reflux disease 528448310 K21.9 Insomnia 222884940 G47.0 0 Posttrauma tic stress disorder 90009580 F43.10 saw her mother suffering and dying .....has nightmares Vitamin D deficiency 347 32995 E55.9 Pain in both feet 427626 4663 0752486 M79.671 M79.953 [id number] Nieves Otero MD [facility] (Adult Med) [address] [place] [address] 31705-396 0 03/25/2021 08:49:22 03/25/2021 16:01:15 Asthma 294405823 J45.909 Crohn's disease 19902040 K50.90 Gastroesop hageal reflux disease 556820121 K21.9 Insomnia 596008769 G47.0 0 Irritable bowel syndrome 63987925 K58.9 Posttrauma tic stress disorder 49781782 F43.10 saw her mother suffering and dying .....has nightmares Stricture of esophagus 36863538 K22.2 Vitamin D deficiency 347 62288 E55.9 Pain of bi lateral hands 3156261191 5265704 M79.641 M79.642 Neuropathy 283196227 G62 .9 [id number] Nieves Otero MD [facility] (Adult Med) [address] [place] [address] 91897-729 0 04/30/2021 08:57:13 05/06/2021 20:50:00 Pain in both feet 7412968416 4652610 M79.671 M79.672 Vitamin D deficiency 347 11870 E55.9 Posttrauma tic stress disorder 46734314 F43.10 saw her mother suffering and dying .....has nightmares Neuropathy 827421305 G62 .9 Insomnia 620657828 G47.0 0 Gastroesop hageal reflux disease 827130661 K21.9 Serum jackie min B12 borderline low 886921894 R79.89 Failure to lose weight 35593277 R63.8 [id number] [facility] (Adult Med) [address] [place] [address] 94579-217 0 06/04/2021 08:41:49 06/05/2021 14:51:53 Plantar fasciitis of left foot 7984481720 1635964 M72.2 [id number] MD [facility] (Adult Med) [address] [place] [address] 66975-307 0 07/11/2021 08:11:50 07/11/2021 17:15:04 Plantar fasciitis of left foot 2324233673 2830988 M72.2 Nausea 957878008 R11.0 Asthma 668100828 J45.90 9 Crohn's disease 02535558 K50.90 Gastroesop hageal reflux disease 470297304 K21.9 Insomnia 298452266 G47.0 0 Irritable bowel syndrome 97830287 K58.9 Neuropathy 487279201 G62 .9 Pain in both feet 930651 2008 5515169 M79.671 M79.672 Pain of bi lateral hands 5453052730 9999340 M79.641 M79.642 Posttrauma tic stress disorder 64966952 F43.10 saw her mother suffering and dying .....has nightmares Serum jackie min B12 borderline low 450330631 R79.89 Stricture of esophagus 78149707 K22.2 Vitamin D deficiency 347 72786 E55.9 [id number] MD [facility] (Adult Med) [address] [place] [address] 31048-447 0 08/19/2021 16:11:35 08/20/2021 12:31:50 Neuropathy 414592167 G62.9 Pain in both feet 248223 5697 5186231 M79.671 M79.672 Plantar fa sciitis of left foot 6366976187 2430203 M72.2 [id number] MD [facility] (Adult Med) [address] [place] [address] 43006[address]890 0 09/30/2021 09:32:53 09/30/2021 10:21:43 Anti-nuclear factor detected 208523533 R76.8 Crohn's disease 89936022 K50.90 Neuropathy 183268112 G62 .9 Posttrauma tic stress disorder 41441557 F43.10 saw her mother suffering and dying .....has nightmares Serum jackie min B12 borderline low 862212785 R79.89 Vitamin D deficiency 347 64505 E55.9 Pain of bi lateral hands 0645734088 4230474 M79.641 M79.642 Pain in both feet 198466 7095 5261702 M79.671 M79.672 Insomnia 956993236 G47.0 0 Gastroesop hageal reflux disease 484401678 K21.9 Asthma 582404597 J45.90 9 Failure to lose weight 41463796 R63.8 [id number] Nieves Otero MD [facility] (Adult Med) [address] [place] [address] 13575-528 0 11/04/2021 15:17:15 11/04/2021 20:36:00 Acute sinusitis 70124279 J01.90 Plantar fa sciitis of left foot 6631361923 0097978 M72.2 Asthma 813139137 J45.90 9 Crohn's disease 10891062 K50.90 Gastroesop hageal reflux disease 413471243 K21.9 Insomnia 893671858 G47.0 0 Neuropathy 696112178 G62 .9 Posttrauma tic stress disorder 62256815 F43.10 saw her mother suffering and dying .....has nightmares Serum jackie min B12 borderline low 317717662 R79.89 Vitamin D deficiency 347 37059 E55.9 [id number] Nieves Otero MD [facility] (Adult Med) [address] [place] [address] 85001-353 0 03/25/2022 15:32:33 03/26/2022 12:21:06 Allergic reaction to bee sting 909823912 T63.444D Gastritis 7799969 K29.70 Neuropathy 010530298 G62 .9 [id number] Nieves Otero MD [facility] (Adult Med) [address] [place] [address] 36814-655 0 04/28/2022 15:12:13 04/29/2022 11:42:04 Gastroesophageal reflux disease 722740262 K21.9 Gastritis 6917352 K29.70 Allergic r eaction to bee sting 854347363 T63.444D Insomnia 683150521 G47.0 0 HIV screening 277555925 Z11.4 Serum jackie min B12 borderline low 809639598 R79.89 Vitamin D deficiency 347 03279 E55.9 Asthma 470016630 J45.90 9 Peptic ulcer 62409515 K2 7.9 Posttrauma tic stress disorder 12811673 F43.10 saw her mother suffering and dying .....has nightmares [id number] MD [facility] (Adult Med) [address] [place] [address] 99764-828 0 01/28/2023 14:59:50 01/29/2023 15:11:25 Obesity 709058760 E66.9 Gastroesop hageal reflux disease 230114787 K21.9 Stricture of esophagus 71156961 K22.2 Discussed use of PPI [id number] Mariluz Lebron DO [facility] [address] [place] [address] 05/28/2023 15:30:59 05/29/2023 13:04:34 History of pancreatitis 1651217416 9107 Z87.19 Gastroesop hageal reflux disease without esophagitis 795577894 K21.9 start esomeprazo le 1 tab QD; await EGD results Constipati on alternates with diarrhea 399346901 K59.09 was told she may have Crohns from colonoscop y at outside facility > 5 years ago. History of peptic ulcer 510749111 Z87.11 [id number] MD [facility] (Adult Med) [address] [place] [address] 38649-461 0 12/14/2023 14:14:23 12/15/2023 08:50:02 Anxiety disorder 387075481 F41.9 [id number] [facility] [address] [place] [address] 36622-[address] 2 12/30/2023 16:01:19 12/31/2023 08:49:46 Abdominal pain 65176042 R10.9 Knows how to handle pancreatit is and puts herself on a liquid diet. But not sure what to do for the pain. She takes a daily PPI and working on changing her diet. Was told in the past she had Crohn's, but medication s didn't help, so possibly wrong diagnosis. Was also told she had gastropare sis, but is unsure if she ever took Reglan. Will review case with Dr. Forte. No further recommenda tions at this time. [id number] MD [facility] (Adult Med) [address] [place] [address] 62010-107 0 03/15/2024 14:08:26 04/06/2024 11:07:25 Pancreatitis 75824849 K85.90 Gastroesop hageal reflux disease 770486980 K21.9 Neuropathy 977777494 G62 .9 Unable to tolerate gabapentin Vitamin D deficiency 347 45346 E55.9 [id number] MD [facility] (Adult Med) [address] [place] [address] 68326-729 0 06/08/2024 14:13:51 06/10/2024 14:43:58 Obesity 664450866 E66.8 Pain in both feet 283950 8004 0877573 M79.671 M79.672 Continue OTC multivitam in supplement . Recheck in 3 mths Vitamin D deficiency 347 92903 E55.9 [id number] MD [facility] (Adult Med) [address] [place] [address] 40526-560 0 09/29/2024 14:47:13 09/30/2024 11:17:00 Family history of Thyroid disorder 214198712 Z83.49 Disorder o f vitamin B12 644583732 E53.8 Pain in both feet 414097 9154 3892350 M79.671 M79.922 [id number] MD [facility] (Adult Med) [address] [place] [address] 06350-613 0 11/02/2024 14:48:10 11/03/2024 12:15:25 Disorder of vitamin B12 907006050 E53.8 [id number] MD [facility] (Adult Med) [address] [place] [address] 12404-797 0 11/15/2024 16:12:24 11/16/2024 09:56:06 Cough 52606469 R05.9 Continue albuterol inhaler [id number] MD [facility] (Adult Med) [address] [place] [address] 42610-491 0 12/01/2024 14:48:47 12/02/2024 12:41:40 Disorder of vitamin B12 109905358 E53.8 [id number] MD [facility] (Adult Med) [address] [place] [address] 90417-253 0 01/25/2025 15:17:27 01/26/2025 16:51:16 Pain of right shoulder region 6695516807 M25.646 [id number] MD [facility] (Adult Med) [address] [place] [address] 39999-946 0 01/30/2025 16:01:47 01/31/2025 11:35:13 Disorder of vitamin B12 839883997 E53.8 [id number] MD [facility] (Adult Med) [address] [place] [address] 64981-751 0 03/08/2025 15:35:32 03/10/2025 12:09:29 Neuropathy 960839733 G62.9 Unable to tolerate gabapentin . No benefit from pregabalin Allergic r eaction to bee sting 907175004 T63.444D [id number] MD [facility] (Adult Med) [address] [place] [address] [id number] 03/22/2025 16:25:21 03/24/2025 11:42:41 Disorder of vitamin B12 [id number] E53.8 Health Concerns Section Related Observation LastModified by Organization Detai ls LastModified Time None Recorded Concern Status LastModified by Organization Details LastModified Time None Recorded Advance Directives Directive N: Payers Insurance Date Sequence Insurance Name Policy Number Policy Leung Covered Member ID Leung Member ID Guarantor Name 12/26/[address] [facility] ON OR AFTER 04/04/21 (MEDICAID REPLACEMENT - HMO) Keri Parker [id number] Keri Parker 11/02/[address] [facility] PRIOR TO 04/04/2021 (MEDICAID REPLACEMENT - HMO) Keri Parker [id number] Keri Parker 03/19/2025 1 [facility] ON OR AFTER 21 (MEDICAID REPLACEMENT - HMO) Keri Parker [id number] Keri Parker Notes Date Note Type Note Provider Name and Address Organization Details Recorded Time 01/25/2025 text/html Has significant pain in right shoulder for the past week. Short- lived relief with OTC meds. Ann Kramer MD Attn: [address] [place], [address], [facility] 01/25/2025 16:10:39 03/08/2025 text/html Two week history of pain from knees to toes. Has tingling(present in past) and now burning sensation with episodic blue blotches lasting about ten minutes. Ann Kramer MD Attn: [address] [place], [address], [facility] 03/08/2025 17:14:14 OBGyn Episode No OBEpisode recorded.
--- OUTSIDE RECORDS SUMMARY | 2025-04-16 13:25 | XMS_ITS | Encounter Summary ---
Author Organization [facility] Address [address] [place] [address] Care Team Providers Care Culinary Director Name Role Phone Pablo Thakur Primary Care Provider + Angel Thakur CREW MEMBER-HOTEL GUEST SERVICE AGENT Primary Care Provider Pablo Thakur Unavailable [phone] Encounter Details Date Type Department Care Team (Late st Contact Info) Description 10/11/2014 Office Visit [address] [address] Pablo Thakur PA [address] [place] [address] Social History Tobacco Use Types Packs/Day Years Used Date Smoking Tobacco: Never Assessed Comments Unknown Sex and Gender Information Value Date Recorded Sex Assigned at Not on file Legal Sex Female 5:33 AM PATHOLOGY COLLECTOR Gender Identity Not on file Sexual Orientation Not on file documented as of this encounter Plan of Treatment Not on file documented as of this encounter Visit Diagnoses Not on filedocumented in this encounter Care Teams Culinary Director Relationship Specialty Start Date End Date Pablo Thakur PA [address] [place] [address] PCP - General Physician Border Patrol Agent 09/04/14 04/26/18 Angel Thakur APRN-HOTEL GUEST SERVICE AGENT [address] [place] [address] PCP - General 04/27/18 [place] [address] [place] [phone] Physician Border Patrol Agent 04/27/18 documented as of this encounter
--- OUTSIDE RECORDS SUMMARY | 2025-04-16 13:25 | XMS_ITS | Clinical Summary ---
Author Organization [facility] Address [address] [place] [id number] Care Team Providers Care Rag Willow Operator Name Role Phone Pablo Thakur Primary Care [...] Active Active Problems No known active problems Surgical History Surgery Date Site/Laterality Comments HYSTERECTOMY 10/05/2018 - 10/04/2019 ENDOMETRIAL ABLATION 10/05/2017 - 10/04/2018 CHOLECYSTECTOMY 10/05/2008 - 10/04/2009 ERCP W/ PLASTIC STENT PLACEMENT 2011 & 2012 PLACED AT THE OPENING OF THE PANCREAS SINUS SURGERY 10/05/2011 - 10/04/2012 THROAT SURGERY 10/05/2019 - 10/04/2020 STRETCHING Family History Medical History Relation Name Comments ADD / ADHD Daughter Failure to thrive Daughter Mental illness Daughter Mental illness Father Kidney disease Mother Mental illness Mother BRAIN TUMOR Sister Liver disease Sister ADD / ADHD Son Alopecia Son Asthma Son Vitiligo Son Relation Name Status Comments Daughter Father Mother Sister Son Social History Tobacco Use Types Packs/Day Years Used Date Smoking Tobacco: Never Smokeless Tobacco: Never Personal Safety Answer Date Recorded Getting School Help Needed Not on file 12/05 Comments Unknown Sex and Gender Information Value Date Recorded Sex Assigned at Not on file Legal Sex Female 9:00 PM REACTOR OPERATOR Gender Identity Not on file Sexual Orientation Not on file Obstetrics History Last Filed Vital Signs Vital Sign Reading [...] Plan of Treatment Not on file Insurance [facility] Care Teams Rag Willow Operator Relationship Specialty Start Date End Date Pablo Thakur PA [address] [place] [address] PCP - General Internal Medicine 08/28/20
--- OUTSIDE RECORDS SUMMARY | 2025-04-16 13:25 | XMS_ITS | Encounter Summary ---
Author Organization [facility] Address [address] [place] [address] Care Team Providers Care Sawmill Or Timber Yard Worker Name Role Phone Angel Thakur DIRECTOR DIGITAL-COATING MIXER SUPERVISOR Primary Care Provider Pablo Thakur PA Unavailable [phone] Encounter Details Date Type Department Care Team (Late st Contact Info) Description 10/07/2023 Lab Requisition [facility] [address] [place] [address] Unknown, Provider Social History Tobacco Use Types Packs/Day Years Used Date Smoking Tobacco: Never Assessed Comments Unknown Sex and Gender Information Value Date Recorded Sex Assigned at Not on file Legal Sex Female 5:33 AM SPACE CONTROL SUPERVISOR Gender Identity Not on file Sexual Orientation Not on file documented as of this encounter Plan of Treatment Not on file documented as of this encounter Procedures Procedure Name Priority Date/Time Associated Diagnosis Comments COMPREHENSIVE METABOLIC PANEL STAT 10/07/2023 3:30 PM SPACE CONTROL SUPERVISOR documented in this encounter Results * COMPREHENSIVE METABOLIC PANEL (10/07/2023 3:30 PM SPACE CONTROL SUPERVISOR) Glucose 75 70 - 105 mg/dL 10/07/2023 5:24 PM SPACE CONTROL SUPERVISOR [facility] Sodium 140 136 - 145 mmol/L 10/07/2023 5:24 PM SPACE CONTROL SUPERVISOR [facility] Potassium 3.8 3.5 - 5.1 mmol/L 10/07/2023 5:[address] [facility] Chloride 107 98 - 107 mmol/L 10/07/2023 5:[address] [facility] CO2 23 22 - 29 mmol/L 10/07/2023 5:[address] [facility] Calcium 9.1 8.4 - 10.4 mg/dL 10/07/2023 5:[address] [facility] Anion Gap 10 6 - 16 mmol/L 10/07/2023 5:[address] [facility] BUN 9 5.3 - 18.7 mg/dL 10/07/2023 5:[address] [facility] Creatinine 0.73 0.57 - 1.11 mg/dL 10/07/2023 5:[address] [facility] Alkaline Phosphatase 64 40 - 150 U/L 10/07/2023 5:[address] [facility] ALT 13 0 - 55 U/L 10/07/2023 5:[address] [facility] AST 15 5 - 34 U/L 10/07/2023 5:[address] [facility] Protein Total 6.5 6.4 - 8.3 gm/dL 10/07/2023 5:[address] [facility] Albumin 4.0 3.4 - 5.0 gm/dL 10/07/2023 5:[address] [facility] Bilirubin Total 1.0 0.2 - 1.2 mg/dL 10/07/2023 5:[address] [facility] eGFR by CKD-EPI >90 >=90 mL/min/1.7 3 m2 10/07/2023 5:[address] [facility] Blood BLOOD SPECIMEN / Unknown Venipuncture / Unknown 10/07/2023 3:30 PM SPACE CONTROL SUPERVISOR 10/07/2023 4:53 PM SPACE CONTROL SUPERVISOR us Provider Unknown LAB - CHEMISTRY ORDERABLES Gertrudis lam Result [facility] [address] [place] [address] documented in this encounter Visit Diagnoses Not on filedocumented in this encounter Care Teams Sawmill Or Timber Yard Worker Relationship Specialty Start Date End Date Angel Thakur, DIRECTOR DIGITAL-COATING MIXER SUPERVISOR PCP - General 04/27/18 Pablo Thakur PA [address] [place] [address] Physician Client Service And Consulting Manager 04/27/18 documented as of this encounter
--- OUTSIDE RECORDS SUMMARY | 2025-04-16 13:25 | XMS_ITS ---
Author Organization Unknown Plan of Treatment Description Planned Activity Planned Timing [facility] is a provider organization who partners directly with Health Plans and provides integrated primary care, behavioral health, and perinatal social worker for an attributed population Letter encounter to patientTelephone encounter Mar 30, 2025Jul 2024 Patient Care team information Name Category Status Period Participants - - Proposed period not known -
--- OUTSIDE RECORDS SUMMARY | 2025-04-16 13:25 | XMS_ITS | Clinical Summary ---
Author Organization [facility] Address [address] [place] [address] Care Team Providers Care Director Cpg Name Role Phone Angel Thakur BUSINESS PROCESS ASSOCIATE-FLOOR WORKER Primary Care Provider Pablo Thakur PA Unavailable [phone] Source Comments [facility],non-owned Affiliates and Associated Physician Practices is amultiple site organization consisting of ambulatory clinics and hospital sitesin [place], [place], [place] and [place]. This disclosure is being madepursuant to the Care Everywhere program and may not contain all information available regarding this patient. Last updated 18.[facility] Social History Tobacco Use Types Packs/Day Years Used Date Smoking Tobacco: Never Assessed Comments Unknown Sex and Gender Information Value Date Recorded Sex Assigned at Not on file Legal Sex Female 5:33 AM GOLF CART REPAIRER Gender Identity Not on file Sexual Orientation Not on file Last Filed Vital Signs Vital Sign Reading Time Taken Comments Blood Pressure 97/67 04/25/2016 2:22 PM CDT Pulse 79 04/25/2016 2:22 PM CDT Temperature 36.4 C (97.5 F) 04/25/2016 1:52 PM CDT Respiratory Rate 17 04/25/2016 2:22 PM CDT Oxygen Saturation 100% 04/25/2016 2:22 PM CDT Inhaled Oxygen Concentration - - Weight 60.8 kg (134 lb) 04/25/2016 12:55 PM CDT Height 157.5 cm (5' 2) 04/25/2016 12:55 PM CDT Body Mass Index 24.51 04/25/2016 12:55 PM CDT Plan of Treatment Health Maintenance Due Date Last Done Comments HIV SCREENING 2001 HEPATITIS C SCREENING 03/22/2004 DTAP/TDAP/TD VACCINES (1 - Tdap) 2005 HEPATITIS B VACCINE (1 of 3 - 19+ 3-dose series) 2005 PAP SMEAR 2007 HPV VACCINE (1 - 3-dose SCDM series) 2013 COVID-19 VACCINE (1 - 2023-2 5 season) 2024 DEPRESSION SCREENING 10/05/2024 INFLUENZA VACCINE (#1) 2025 ZOSTER VACCINE (1 of 2) 2036 HIB VACCINE Aged Out No longer eligi ble based on patient's age to complete this topic MENINGOCOCCAL (Group B) VACC INE SHARED DECISION-MAKING Aged Out No longer eligibl e based on patient's age to complete this topic MENINGOCOCCAL GROUPS A/C/Y/W VACCINE Aged Out No longer eligible b ased on patient's age to complete this topic PNEUMOCOCCAL VACCINE Aged Out No long er eligible based on patient's age to complete this topic Insurance [facility] Care Teams Director Cpg Relationship Specialty Start Date End Date Angel Thakur, BUSINESS PROCESS ASSOCIATE-FLOOR WORKER PCP - General 04/27/18 [place] [address] [place] [phone] Physician Mobile Solutions Architect 04/27/18
== END 2025-04-16 13:22 | disposition home or self-care (01) ==
PROVIDERS: PCP Orthopaedic Surgery; Visit Provider Orthopaedic Surgery
DX: M75.51 Bursitis of right shoulder (principal); M75.81 Other shoulder lesions, right shoulder
CPT/HCPCS: 73221

== ENCOUNTER 2025-05-10 14:19 | Outpatient (RCR) | payer OTHER, SELFPAY ==
--- NOTE | 2025-05-10 15:25 | OPREHPOC ---
Outpatient Therapy Plan of Care This is a Multidisciplinary Plan of Care that may contain components documented by all disciplines (PT, OT, and ST.) PT Problem 1 PT Problem #1 Knowledge Deficit PT Goal 1 Goal / Goal Update The patient will be independent in a home exercise program. Target Visit 2 PT Problem 2 PT Problem #2 Pain PT Goal 1 Goal / Goal Update The patient will report no greater than 2/10 right shoulder pain with lifting and repetitive activities. Target Visit 8 PT Problem 3 PT Problem #3 Impaired Range of Motion PT Goal 1 Goal / Goal Update The patient will demonstrate at least 140 degrees of pain free right shoulder AROM. The patient will demonstrate functional IR to at least T10 pain free right shoulder AROM. Target Visit 8 PT Problem 4 PT Problem #4 Impaired Strength PT Goal 1 Goal / Goal Update The patient will demonstrate 4/5 or greater right shoulder strength. The patient will lift 20# from waist to shoulder with 2/10 or less right shoulder pain to perform job tasks. Target Visit 8
--- NOTE | 2025-05-10 15:25 | PTOPEVAL1 ---
Assessment and note entered by Aide Strong, PT Evaluation Information Assessment Status Evaluation ICD-10 Condition Codes (PT) Pain in right shoulder M25.511 Other ICD-10 Condition Codes ( M75.81 other shoulder lesions, right shoulder PT) Onset 11/05/24 Subjective Information Keri Parker reports she has been diagnosed with severe tendonitis in the right shoulder that has been present since November 2024. She has tried prednisone and a cortisone injection that did not help her pain. She has had a x-ray and MRI that showed severe tendonitis. 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 She has been started on an anti-inflammatory medication but has not noticed any changes since she has only been taking it 3 days. She has pain on the back of the right shoulder that wraps around to the front of the shoulder and down the side. She notes increased pain with increased movement of her arm. She has also started working out and can not hold herself to perform a push up and she can not lift a case of water. She is unable to take time off work and can not work light duty. Reported Pain Level Pain Score 6: Self Report Assessment PT Clinical Summary Keri Parker presents with right shoulder pain and has been diagnosed with severe tendonitis after x-rays and a MRI. 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 She demonstrates decreased posture, tenderness on the rotator cuff and long head of the bicep insertion sites, decreased and painful right shoulder AROM, decreased right shoulder strength, and positive special tests for rotator cuff and biceps tendonitis. She will benefit from skilled PT to address these limitations. Plan of Care Interventions Electrical Stimulation,Hot Pack/Cold Pack,Manual Therapy,Neuro Re-education,Patient/Caregiver Education,Therapeutic Activities,Therapeutic Exercise PT Services Indicated Yes Treatment Frequency and 2 times a week for 8 visits Duration These treatments will address the objective and functional deficits as defined above. The patient will be advanced safely and appropriately in order for the patient to progress towards his/her prior level of function. Additional exercises will be introduced and as well as a comprehensive home exercise program upon discharge, if needed, ?to ensure carryover of functional gains achieved in the clinic. This treatment plan has been reviewed and agreement upon by the patient.
--- NOTE | 2025-06-08 14:15 | OPREHPOC ---
Outpatient Therapy Plan of Care This is a Multidisciplinary Plan of Care that may contain components documented by all disciplines (PT, OT, and ST.) PT Problem 1 PT Problem #1 Knowledge Deficit PT Goal 1 Goal / Goal Update The patient will be independent in a home exercise program. Target Visit 2 Progress Met PT Problem 2 PT Problem #2 Pain PT Goal 1 Goal / Goal Update The patient will report no greater than 2/10 right shoulder pain with lifting and repetitive activities. Target Visit 8 Progress Not Met PT Problem 3 PT Problem #3 Impaired Range of Motion PT Goal 1 Goal / Goal Update The patient will demonstrate at least 140 degrees of pain free right shoulder AROM. The patient will demonstrate functional IR to at least T10 pain free right shoulder AROM. Target Visit 8 Progress Not Met PT Problem 4 PT Problem #4 Impaired Strength PT Goal 1 Goal / Goal Update The patient will demonstrate 4/5 or greater right shoulder strength. The patient will lift 20# from waist to shoulder with 2/10 or less right shoulder pain to perform job tasks. Target Visit 8 Progress Not Met
--- NOTE | 2025-06-08 14:15 | PTOPDC ---
Assessment and note entered by Aide Strong, PT Evaluation Information Assessment Status Discharge ICD-10 Condition Codes (PT) Pain in right shoulder M25.511 Other ICD-10 Condition Codes ( M75.81 other shoulder lesions, right shoulder PT) Onset 11/05/24 Subjective Information Keri Parker reports she saw Dr. Thakur on and he thinks she may have something coming from her neck in addition to the tendonitis in her shoulder. She continues to perform repetitive work and has not had any relief with PT. She did not even have relief when she was off for 4 days in a row. She does note constant neck stiffness in addition to right shoulder pain. She will see Dr. Thakur again on 07/18/25. She would like to discontinue PT because it has not helped. Reported Pain Level Pain Score 6: Self Report Assessment PT Clinical Summary Keri Parker has completed 8 skilled PT visits for right shoulder pain and has been diagnosed with severe tendonitis after x-rays and a MRI. She continues to have constant right shoulder pain that hasn't improved with anti-inflammatory medication, injections, PT, ice, or rest. She reports Dr. Thakur thinks she may have an issue with her neck as well and will see her again in 6 weeks. She reports no overall change since participating in PT. She continues to have decreased and painful R shoulder AROM, decreased right shoulder strength, poor posture, and positive special tests for rotator cuff pathology. She also demonstrates a positive right cervical quadrant test indicating possible nerve root irritation as well. She has not met PT goals and will be discharged to an independent [facility]. Plan of Care PT Services Indicated No
== END 2025-06-08 14:37 | disposition home or self-care (01) ==
LOC: CHSPT 14:19
PROVIDERS: Visit Provider Orthopaedic Surgery
DX: M75.81 Other shoulder lesions, right shoulder (principal)
CPT/HCPCS: 97014; 97110; 97112; 97140; 97150; 97161; 97750; G0283